=== PATIENT | female | born 1935 | race African-American/Black ===

== ENCOUNTER 2018-08-21 09:33 | Inpatient (IN) | payer MEDICAID, MEDICARE, OTHER ==
[2018-08-21 10:16] LABS: Mean Corpuscular HGB CONC 32.9 g/dL (32.0-36.0); Mean Corpuscular Hemoglobin 26.8 pg (27.0-31.0); Mean Corpuscular Volume 81.6 fL (78.0-98.0); Mean Platelet Volume 8.3 fL (7.4-10.4); Platelet Count 200 thou/uL (130-400); RBC Distribution Width 15.3 % (11.5-14.5); Red Blood Cell (RBC) Count 4.12 mill/uL (4.20-5.40); White Blood Cell (WBC) Count 24.8 thou/uL (4.8-10.8)
[2018-08-21 10:17] LABS: ALT (SGPT) 26 U/L (8-55); AST (SGOT) 30 U/L (5-34); Albumin 3.8 g/dL (3.4-4.8); Alkaline Phosphatase 61 U/L (40-150); Anion Gap 17 mmol/L (10-20); BUN (Urea Nitrogen) 24 mg/dL (9.8-20.1); Bilirubin, Total 0.8 mg/dL (0.2-1.2); Calc. Creatinine Clearance 0 mL/min (70-130); Calcium 9.9 mg/dL (7.8-10.44); Carbon Dioxide 19 mmol/L (23-31); Chloride 109 mmol/L (98-107); Estimated GFR-MDRD 27; Globulin 4.1 g/dL (2.4-3.5); Glucose 219 mg/dL (83-110); Potassium 4.7 mmol/L (3.5-5.1); Protein, Total 7.9 g/dL (6.0-8.3); Sodium 140 mmol/L (136-145)
[2018-08-21 10:22] LABS: Bilirubin Negative (Negative); Blood, Urine Trace (Negative); Clarity Clear (Clear); Glucose, Urine (Dipstick) Negative (Negative); Leukocyte Negative (Negative); Nitrite Negative (Negative); Protein, Urine (Dipstick) 30 mg/dL (Neg-Trace); Urobilinogen 0.2 mg/dL (Less than 2)
--- NOTE | 2018-08-21 10:30 | RAD ---
XR Chest Pa Lat STANDARD HISTORY: Fever COMPARISON: None FINDINGS: The heart size is normal. The lungs are well expanded without focal areas of consolidation, pneumothorax or pleural effusions. There are degenerative changes in the spine. IMPRESSION: No radiographic evidence of acute cardiopulmonary process.
[2018-08-21 10:31] LABS: RBC/HPF 0-3 HPF (0-3); Squamous Epithelial None Seen HPF (0-3); WBC/HPF None Seen HPF (0-3)
[2018-08-21 10:32] LABS: Bacteria/HPF None Seen HPF (None Seen); Epithelial Cast None Seen LPF (None Seen); White Blood Cell Cast None Seen LPF (None Seen)
[2018-08-21 10:39] LABS: Band 4 % (5-11); Hypochromia SLIGHT = 6-15 cells (100X) (0-5/hpf); Lymphocytes 8 % (21-51); MDiff Complete? YES; Monocytes 6 % (0-10); Neutrophil 82 % (42-75); Platelet Morphology Comment Appears Adequate
[2018-08-21] MEDS ORDERED: Sodium Chloride 0.9% 100 ML ONE (10:48)
[2018-08-21] MEDS ORDERED: Acetaminophen 500 MG TAB ONE (10:48)
[2018-08-21] MEDS ORDERED: Piperacillin/Tazobactam 4.5 GM VIAL ONE (10:48)
[2018-08-21] MEDS ORDERED: Heparin 1,000 UNITS/ML VIAL ONE (11:11)
[2018-08-21 13:36] LABS: Lactic Acid 1.7 mmol/L (0.5-2.2)
[2018-08-21] MEDS ORDERED: Dextrose 5% in Water 1,000 ML IV PRN (15:59)
[2018-08-21] MEDS ORDERED: Dextrose 50% Abboject 50 ML SYRINGE SLOW IVP PRN (15:59)
[2018-08-21] MEDS ORDERED: traMADol HCl 50 MG TAB PO PRN (16:15)
[2018-08-21] MEDS ORDERED: Acetaminophen 325 MG TAB PO PRN (16:18)
[2018-08-21] MEDS ORDERED: hydrALAZINE 20 MG/ML VIAL SLOW IVP PRN (16:27)
[2018-08-21] MEDS ORDERED: Benzonatate 100 MG CAP PO PRN (16:27)
[2018-08-21] MEDS ORDERED: Ondansetron ODT 4 MG TAB PO PRN (16:27)
[2018-08-21] MEDS ORDERED: Bisacodyl 5 MG TAB PO PRN ×2 (16:27)
[2018-08-21] MEDS ORDERED: cloNIDine 0.1 MG TAB PO PRN (16:27)
[2018-08-21] MEDS ORDERED: Senokot S 8.6-50 MG TAB PO PRN ×2 (16:27)
[2018-08-21] MEDS ORDERED: Diabetic Tussin 200 MG/10 ML UDCUP PO PRN (16:27)
--- NOTE | 2018-08-21 16:52 | RAD ---
3 VIEWS RIGHT KNEE: Date: 08/21/18 HISTORY: Pain. Sepsis. Evaluate for infected joint. COMPARISON: None. FINDINGS: No significant joint effusion. There is a right knee arthroplasty without evidence of perihardware deanne cency to suggest loosening or complication. No evidence of fracture. There is mild osteopenic change. IMPRESSION: No radiographic evidence of loosening or infection. No significant joint effusion. POS: [facility]
--- NOTE | 2018-08-21 17:29 | HP ---
PRIMARY CARE PHYSICIAN: Out of town. CHIEF COMPLAINT: High fever and right knee pain. HISTORY OF PRESENTING ILLNESS: Ms. Last is a very pleasant 82-year-old female with past medical history of diabetes mellitus, hypertension, and dyslipidemia, who is traveling here from [place] [employer], who then presented to [facility] for the above-mentioned complaint. History is mainly obtained by the patient herself. Electronic medical records have been reviewed and case has been discussed with admitting ER physician, Dr. Tavera. Ms. Last reports that she has been here with her granddaughter for the last few days and has been doing fine up until yesterday. Yesterday, all of a sudden, she started to have high fever as high as 104.9. She has had no prodrome of symptoms and no sick contacts. She denies any cough, shortness of breath, chest pain, and abdominal symptoms like abdominal pain or diarrhea. She had no difficulty with urination or increased frequency. She did notice that her right knee has swollen up and she had pain in the right knee. She also was feeling extremely weak after the fever subsided and her knees were giving way. She did have a little bit of sore throat yesterday as well. She presented to the ER with these symptoms and a temperature over that was 100.1, blood pressure 138/79, heart rate 91. Her initial workup did not reveal any specific source of infection. Her group A Streptococcus screen was negative and chest x-ray and urinalysis did not reveal any source of infection either. She was found to have elevated lactic acid and leukocytosis with WBCs of 24.8, platelet count of 200. She has 82% neutrophils. Serum chemistry revealed BUN 24, creatinine 1.81 with baseline unknown. She is now being admitted to telemetry unit with sepsis of unknown source. PAST MEDICAL HISTORY: 1. Hypertension. 2. Diabetes mellitus. 3. Dyslipidemia. PAST SURGICAL HISTORY: 1. Bilateral knee replacement, she has hardware in there according to her. 2. Cholecystectomy. 3. Hysterectomy. PSYCHIATRIC HISTORY: No anxiety or depression. SOCIAL HISTORY: She has no history of drug, tobacco, or alcohol abuse. She lives in [place], [place] but is visiting her granddaughter here. FAMILY HISTORY: Mother had heart failure. One of her sisters had breast cancer and sister's daughter had colon cancer. Two of her brothers also had some sort of cancer, but she does not know which type. Multiple family members have diabetes mellitus. The patient has never had a mammogram done, but she has had a colonoscopy five years ago. ALLERGIES: NO KNOWN MEDICATION ALLERGIES. CURRENT MEDICATIONS: Listed in the ER records; 1. Zetia 10 mg daily. 2. Ponce every 6 hours p.r.n. 3. Losartan 50 mg daily. 4. Allopurinol 100 mg daily. 5. Amlodipine 10 mg daily. 6. D3 once daily. 7. Aspirin 81 mg daily. 8. 5 mg daily. 9. Myrbetriq 25 mg daily. 10. Glipizide 10 mg daily. 11. Reglan 5 mg in the morning. REVIEW OF SYSTEMS: A 14-point review of system is done, it is negative except for those mentioned in the history and physical. CODE STATUS: Full code discussed with the patient. LABORATORY DATA: Lab examination; CBC shows WBCs 24.8, hemoglobin 11, platelet count of 200, and neutrophils 82%. Lactic acid 3.2 with a repeat lactic acid of 1.7. Blood sugar 219, BUN 24, and creatinine 1.81. Urinalysis shows trace protein, otherwise no bacteria, leukocyte esterase, or nitrites. Chest x-ray by my review shows no evidence of pleural effusion, edema, or infiltrate or atelectasis. A 12-lead EKG by my review shows normal sinus rhythm at 85 beats per minute without any ectopic changes. There is no ST or T-wave changes. PHYSICAL EXAMINATION: VITAL SIGNS: Upon presentation; blood pressure 138/79, pulse of 91, respirations 16, saturating 99% on room air, and temperature 100.1. GENERAL: She is somewhat uncomfortable because she complains of pain in her right knee. Otherwise, awake, alert, and oriented x3. HEENT: Mucous membrane is slightly dry. No oropharyngeal exudate or erythema. Head is normocephalic and atraumatic. Pupils are equal and reactive to light and accommodation. Extraocular movement intact. NECK: Supple without any lymphadenopathy, JVD, or bruit. CHEST: Clear to auscultation without any wheezing, rales, or rhonchi. HEART: Rate and rhythm are regular without any murmurs, rubs, or gallops. ABDOMEN: Soft, nontender, and nondistended with positive bowel sounds. EXTREMITIES: Free of any cyanosis, clubbing, or edema. NEUROLOGICAL: Examination is nonfocal. MUSCULOSKELETAL: Examination reveals swelling and tenderness with some warmth to her right knee in comparison to her left knee. SKIN: Free of any rashes or bruises. Feels warm and dry to touch. IMPRESSION AND PLAN: 1. Sepsis. The source is unknown at this time, but her right knee is quite concerning with hardware in the joint and pain and swelling. We will start with knee x-rays and continue empiric broad-spectrum antibiotics and supportive care for sepsis including IV fluids for now. Blood culture, urine culture have been obtained. The patient has had some complaints of sore throat, but her group A Streptococcus screen was negative. We will obtain viral respiratory panel by that as well. 2. Acute renal insufficiency. Baseline is unknown. We will continue IV fluids and avoid nephrotoxic medications and recheck her kidney function in the morning. 3. History of hypertension. Reconcile home medications and start them. Add p.r.n. antihypertensives as well. 4. Dyslipidemia. We will restart her Zetia once the dose is confirmed. 5. Code status. Full code discussed with the patient in detail. Surrogate decision maker is her daughter, who is not present in the room at this time. DISPOSITION: The patient is being admitted to telemetry floor for sepsis without any known source. She is hemodynamically stable at this time. Estimated length of stay is at least 2 to 3 midnights. Further management will depend upon her clinical course. Job ID: [id number]
[2018-08-21] MEDS: Sodium Chloride 0.9% 1,000 ML IV SCH (17:42)
[2018-08-21] MEDS: Piperacillin/Tazobactam 3.375 GM in Sodium Chloride 0.9% 100 ML IVPB SCH ×2 (17:48→22:53)
[2018-08-21 18:00] VITALS: BMI 31.5
[2018-08-21] MEDS ORDERED: Piperacillin/Tazobactam 4.5 GM in Sodium Chloride 0.9% 100 ML IVPB SCH (19:00)
[2018-08-21] MEDS ORDERED: Vancomycin HCl 1 GM in Premix Bag 1 BAG IVPB SCH (21:00)
[2018-08-21] MEDS ORDERED: Famotidine 20 MG TAB PO SCH (21:00)
[2018-08-22] MEDS: Piperacillin/Tazobactam 3.375 GM in Sodium Chloride 0.9% 100 ML IVPB SCH ×3 (05:13→16:44)
[2018-08-22 07:28] LABS: #Lymphocytes 2.9 thou/uL (1.20-3.40); #Monocytes 2.6 thou/uL (0.11-0.59); #Neutrophils 18.8 thou/uL (1.40-6.50); %Basophils 0.1 % (0.0-1.0); %Eosinophils 0.1 % (0.0-10.0); %Monocytes 10.8 % (0.0-10.0); %Neutrophils 77.1 % (42.0-75.0); Hemoglobin 10.6 g/dL (12.0-16.0); Mean Corpuscular HGB CONC 31.5 g/dL (32.0-36.0); Mean Corpuscular Hemoglobin 26.5 pg (27.0-31.0); Mean Platelet Volume 9.8 fL (7.4-10.4); Platelet Count 161 thou/uL (130-400); RBC Distribution Width 14.5 % (11.5-14.5); Red Blood Cell (RBC) Count 4.02 mill/uL (4.20-5.40); White Blood Cell (WBC) Count 24.3 thou/uL (4.8-10.8)
[2018-08-22 07:51] LABS: Anion Gap 13 mmol/L (10-20); BUN (Urea Nitrogen) 18 mg/dL (9.8-20.1); Calc. Creatinine Clearance 32 mL/min (70-130); Calcium 9.2 mg/dL (7.8-10.44); Carbon Dioxide 19 mmol/L (23-31); Chloride 110 mmol/L (98-107); Estimated GFR-MDRD 43; Glucose 184 mg/dL (83-110); Potassium 4.5 mmol/L (3.5-5.1); Sodium 137 mmol/L (136-145)
[2018-08-22] MEDS: Amlodipine 10 MG TAB PO SCH (08:25)
[2018-08-22] MEDS: Allopurinol 100 MG TAB PO SCH (08:25)
[2018-08-22] MEDS: Alogliptin 6.25 MG TAB PO SCH (08:25)
[2018-08-22] MEDS: HumaLOG 300 UNITS/3 ML VIAL SC PRN ×3 (08:26→17:55)
[2018-08-22] MEDS ORDERED: Enoxaparin Sodium 40 MG/0.4 ML SYRINGE SC SCH (09:00)
[2018-08-22] MEDS ORDERED: Lidocaine 1% (PF) 30 ML VIAL ONE (10:49)
[2018-08-22] MEDS ORDERED: Vancomycin HCl 750 MG in Sodium Chloride 0.9% 250 ML 250 ML IVPB SCH (12:00)
--- NOTE | 2018-08-22 12:36 | RAD ---
EXAM: XR Knee Lt 4 View STANDARD DATE: 08/22/2018 12:05 PM INDICATION: Infected total knee arthroplasty COMPARISON: None. FINDING: There is joint capsular distention. There is heterotopic ossification seen within the regio n of the patellar tendon. Small fragment of suspected polymethylmethacrylate measuring 5 mm is seen within the lateral aspect of the knee joint. There is diffuse osteopenia. The prosthetic components p roject in the expected position. IMPRESSION:Joint capsular distention. Total knee arthroplasty projects in the expected position. Hete rotopic ossification is seen within the region of the patella. Small suspected piece of polymethylmethacrylate is seen within the lateral aspect of the knee joint.
--- NOTE | 2018-08-22 12:53 | PDOC.PN ---
- Subjective Encounter Start Date: 08/22/18 Encounter Start Time: 10:30 Subjective: c/o pain both knees, no cough/sore throat/diarrhea/abd or chest pain - Objective Resuscitation Status - Order Detail: 08/21/18 16:27 Resuscitation Status Routine Resuscitation Status: FULL: Full Resuscitation Discussed with: discussed w pt MART Reviewed: Yes Vital Signs & Weight: Vital Signs (12 hours) Temp Pulse Resp BP Pulse Ox 08/22/18 11:38 99.8 F H 85 19 126/60 96 08/22/18 08:25 82 08/22/18 07:24 99.6 F 82 16 134/60 97 08/22/18 03:45 99.3 F 82 20 132/62 94 L Weight Weight 145 lb 12.8 oz Result Diagrams: 08/22/18 06:46 08/22/18 06:46 Additional Labs: Accuchecks 08/22/18 08/22/18 08/21/18 11:09 05:24 20:21 POC Glucose 174 H 191 H 201 H 08/21/18 17:58 POC Glucose 218 H Phys Exam - Physical Examination HEENT: PERRLA, moist MMs Neck: no JVD, supple Respiratory: no wheezing, no rales Cardiovascular: RRR, no significant murmur Gastrointestinal: soft, non-tender, positive bowel sounds Musculoskeletal: pulses present b/l knee have mild effusion, warm to touch, tenderness along joint lines Neurological: non-focal, moves all 4 limbs Psychiatric: normal affect, A&O x 3 Dx/Plan (1) Sepsis Code(s): A41.9 - SEPSIS, UNSPECIFIED ORGANISM Status: Acute Qualifiers: Sepsis type: Streptococcus group B Qualified Code(s): A40.1 - Sepsis due to streptococcus, group B (2) Bacteremia Code(s): R78.81 - BACTEREMIA Status: Acute Comment: strep pneumo (3) Septic arthritis Status: Acute Qualifiers: Septic arthritis location: knee Comment: likely b/l (4) SABINO (acute kidney injury) Code(s): N17.9 - ACUTE KIDNEY FAILURE, UNSPECIFIED Status: Acute (5) Metabolic acidosis Code(s): E87.2 - ACIDOSIS Status: Acute (6) DM type 2 (diabetes mellitus, type 2) Status: Chronic Qualifiers: Diabetes mellitus keno terminal operator insulin use: without keno terminal operator use (7) HTN (hypertension) Code(s): I10 - ESSENTIAL (PRIMARY) HYPERTENSION Status: Chronic Qualifiers: Hypertension type: essential hypertension Qualified Code(s): I10 - Essential (primary) hypertension (8) Dyslipidemia Code(s): E78.5 - HYPERLIPIDEMIA, UNSPECIFIED Status: Chronic (9) Chronic anemia Code(s): D64.9 - ANEMIA, UNSPECIFIED Status: Chronic - Plan d/w , will go for wash out in am, had purulent material asp in kn -: continue vanc, zosyn, await full sensitivities, has 2/2 strep pnemo in bloo -: continue alogliptin, norvasc, myrbetriq -: gentle iv hydration, echo is pending * . Review of Systems - Medications/Allergies Allergies/Adverse Reactions: Allergies Allergy/AdvReac Type Severity Reaction Status Date / Time No Known Allergies Allergy Unverified 08/21/18 16:13 Medications: Current Medications Allopurinol (Zyloprim) 100 mg PO DAILY [facility] Last Admin: 08/22/18 08:25 Dose: 100 mg Alogliptin Benzoate (Alogliptin) 5 mg PO DAILY [facility] Last Admin: 08/22/18 08:25 Dose: 5 mg Amlodipine Besylate (Norvasc) 10 mg PO DAILY [facility] Last Admin: 08/22/18 08:25 Dose: 10 mg Benzonatate (Tessalon) 100 mg PO Q6H PRN PRN Reason: Cough Bisacodyl (Dulcolax) 10 mg PO DAILYPRN PRN PRN Reason: Constipation Clonidine (Catapres) 0.1 mg PO Q4H PRN PRN Reason: SBP > 160____ Dextrose/Water (Dextrose 50%) 25 gm SLOW IVP PRN PRN PRN Reason: Hypoglycemia Enoxaparin Sodium (Lovenox) 40 mg SC 0900 [facility] Last Admin: 08/22/18 08:26 Dose: 40 mg Famotidine (Pepcid) 20 mg PO QPM [facility] Glucagon (Glucagon) 1 mg IM PRN PRN PRN Reason: Hypoglycemia Guaifenesin (Robitussin Sf) 200 mg PO Q4H PRN PRN Reason: Cough Hydralazine HCl (Apresoline) 10 mg SLOW IVP Q4H PRN PRN Reason: SBP > 180 and HR < 70 Dextrose/Water (D5w) 1,000 mls @ 0 mls/hr IV .Q0M PRN PRN Reason: Hypoglycemia Sodium Chloride (Normal Saline 0.9%) 1,000 mls @ 75 mls/hr IV INF [facility] Last Admin: 08/21/18 17:42 Dose: 1,000 mls Piperacillin Sod/Tazobactam (Sod 3.375 gm/ Sodium Chloride) 100 mls @ 200 mls/ hr IVPB Q6H [facility] Last Admin: 08/22/18 11:34 Dose: 100 mls Vancomycin HCl 750 mg/ Sodium (Chloride) 250 mls @ 250 mls/hr IVPB 1200 LY Insulin Human Lispro (Humalog) 0 units SC .MODERATE SLIDING SC PRN PRN Reason: Moderate Correctional Scale Last Admin: 08/22/18 08:26 Dose: 2 units Mirabegron (Myrbetriq Er) 25 mg PO DAILY [facility] Last Admin: 08/22/18 09:09 Dose: 25 mg Miscellaneous Medication (Pharmacy To Dose) 1 each IVPB PRN PRN PRN Reason: Pharmacy to dose Ondansetron HCl (Zofran Odt) 4 mg PO Q6H PRN PRN Reason: Nausea/Vomiting Senna/Docusate Sodium (Senokot S) 2 tab PO BIDPRN PRN PRN Reason: Constipation Sodium Chloride (Flush - Normal Saline) 10 ml IVF PRN PRN PRN Reason: Saline Flush Tramadol HCl (Ultram) 50 mg PO Q6H PRN PRN Reason: Pain Last Admin: 08/21/18 21:07 Dose: 50 mg
[2018-08-22 13:25] LABS: Body Fluid Source Synovial Fluid; Clarity Cloudy/Turbid (Clear)
[2018-08-22 13:26] LABS: BF Color Yellow; RBC Count-Automated 376000 /cumm; Tube # EDTA; WBC/NonHematic-Auto 264800 /cumm
[2018-08-22 13:29] LABS: BF Segmented Neutrophils 87 %; Cell Count Non Hematic 11 %; Lymphocytes 2 %
[2018-08-22] MEDS: cefTRIAXone\\ROCEPHIN 2 GM in Sodium Chloride 0.9% 100 ML IVPB SCH (17:56)
[2018-08-22] MEDS: Acetaminophen 325 MG TAB PO PRN ×2 (17:56→23:52)
[2018-08-22] MEDS: Famotidine 20 MG TAB PO SCH (20:27)
--- NOTE | 2018-08-23 00:27 | CON ---
DATE OF CONSULTATION: 08/22/2018 REASON FOR CONSULTATION: Bacteremia and bilateral knee replacement infection. HISTORY OF PRESENT ILLNESS: An 82-year-old with history of type 2 diabetes and hypertension, who had bilateral TKRs elsewhere and was in her usual state of health until 2 days before admission, when she developed fever of 104, general malaise, and worsening pain, initially on the right knee and then the left side with swelling. She was visiting her family members from [place] here in town. Before the trip, she was feeling just fine. BP was 130/70, heart rate 91 and she denied any headaches. No visual symptoms, cough, or sputum production. No sore throat. No back pain more than usual. No abdominal pain. No diarrhea. No genitourinary symptoms. No other joint symptoms. PAST MEDICAL HISTORY: Hypertension, type 2 diabetes, and dyslipidemia. PAST SURGICAL HISTORY: Bilateral knee replacements, cholecystectomy, and hysterectomy. SOCIAL HISTORY: Lives in [place] with family. Never smoker. No alcoholic beverage use. No drug use. FAMILY HISTORY: Coronary artery disease and colon cancer. ALLERGIES: NONE. CURRENT MEDICATIONS: 1. Tylenol. 2. Zyloprim. 3. Alogliptin. 4. Norvasc. 5. Tessalon. 6. Dulcolax. 7. Catapres. 8. . 9. Lovenox. 10. Pepcid. 11. Glucagon. 12. Insulin. 13. Myrbetriq. 14. Zosyn. 15. Vancomycin. PHYSICAL EXAMINATION: VITAL SIGNS: T-max 101.4, blood pressure 130/60, pulse 92, respirations 18, and O2 saturation 96%. SKIN: Shows peripheral IV access. She is voiding spontaneously in the diaper. GENERAL: No distress, pleasant. LYMPH: No lymphadenopathy. HEENT: Ocular movements conjugate. Sclerae white. Pupils are equal. Oral cavity, no lime teeth remaining in place. NECK: Supple. No jugular venous distention. LUNGS: Symmetric. Clear breath sounds. HEART: S1, S2. Regular rate without murmurs. ABDOMEN: Soft, not distended or tender. No ascites. No organomegaly. : No bladder distention. EXTREMITIES: Marked swelling in left knee and right knee. Marked limitation in range of motion due to severe pain, cannot even remove her socks without eliciting tremendous amount of pain. Pulses are 1+ in dorsalis pedis. No edema. Upper extremities, she is able to move well. NEURO: Cognitive function appears to be intact. LABORATORY DATA: White cell count is 24.8 and 24.3, hemoglobin 10.6, and platelets 161. Sodium 137. Creatinine 1.41 and on admission 1.81. Liver profile was within normal limits. Albumin 3.8. Urinalysis was essentially normal except for 30 protein. Synovial fluid with 264,000 wbc's with predominance of neutrophils. Two sets of blood cultures with Streptococcus pneumoniae. ASSESSMENT: Type 2 diabetes, hypertension, bilateral total knee replacements with hematogenous infection of the total knee replacements by Strep pneumoniae. The origin of this probably is respiratory tract, although the patient did not have any obvious symptoms of upper respiratory or lower respiratory tract infection. We will switch her to Rocephin 2 g daily. Discontinue remainder of antimicrobials. We will need PICC line and protracted IV antimicrobial therapy and orthopedic surgery washout, maybe removal of the implants with a functional spacer in their place. The disposition will probably involve transfer to [place] to rehab or similar setting or here in town and then completion of the treatment in the outpatient setting. Following initial IV therapy course, then around 3 to 6 months of oral Keflex, and may need chronic suppressive therapy depending on the surgical management. Job ID: [id number]
--- NOTE | 2018-08-23 00:53 | CON ---
DATE OF CONSULTATION: 08/22/2018 HISTORY OF PRESENT ILLNESS: Ms. Last is an 82-year-old female, who had previous total knee replacements performed, one in 2001 and the other one in 2003. She did very well with the left total knee and had no pain whatsoever from it. She states that she had a little bit discomfort in the right knee, but was very functional with it. Two days ago, she without a history of trauma or increased activity, began having high fever that was recorded here yesterday of fever up to 104.9, and she developed severe pain in both knees, right worse than left. She did have some swelling in the left knee, but no significant swelling in the right knee. No open wounds. X-rays of her knee show total knee replacements in good position and good alignment. No signs of loosening and I was able to review them and they do actually look very good. There was concern for possible septic arthritis. I was consulted for evaluation and aspiration. PAST MEDICAL HISTORY: Diabetes mellitus, hypertension, and dyslipidemia. PAST SURGICAL HISTORY: Above-mentioned left and right total knee replacements, cholecystectomy, and hysterectomy. PHYSICAL EXAMINATION: VITAL SIGNS: The patient has had temperature recorded up to 104.9. Her latest vital signs; temperature 99.3, pulse 82, respiratory rate 20, and blood pressure 132/62. EXTREMITIES: Examination of the knees shows well-healed scars over the anterior aspect of both knees. The right knee has no significant swelling. It is held in approximately 25 degrees of flexion. Any attempts of movement, either flexion or extension, causes severe pain. The skin itself looks very good. There are no open wounds and no noticeable erythema. The left knee does have some swelling but is also very painful to any type of movement and it is held at approximately 25 degrees of flexion. Both lower extremities are neurovascularly intact. LABORATORY DATA: Her white count this morning was 24.3, hemoglobin 10.6, and hematocrit 33.7. Chemistries show creatinine 1.41 and BUN is normal at 18. Her UA was normal. IMPRESSION: The patient is status post left and right total knee replacements with septic arthritis in both knees, hematogenous in origin, but the primary infection site at this point is unknown. PLAN: The patient will require irrigation and debridement of both knees. As she has already eaten, we will need to prepare her for the surgery and proceed with the surgery tomorrow. It appears that she has had a Oneal and Nephew total knee replacements and we will try to get polyethylene tibial liner to see if we can exchange those. Regardless of whether we get that or not, we will need to open them up and wash her out. The patient and her granddaughter are in agreement. Job ID: [id number]
[2018-08-23] MEDS: Sodium Chloride 0.9% 1,000 ML IV SCH ×2 (03:27→23:26)
[2018-08-23] MEDS ORDERED: Neomycin-Polymyxin 1 ML AMP ONE ×2 (07:58→08:00)
[2018-08-23] MEDS ORDERED: Fentanyl 100 MCG/2 ML VIAL ONE (08:37)
[2018-08-23] MEDS ORDERED: Bupivacaine HCl 0.5%/Epinephrine 1:200,000/PF 30 ml Vial ONE (10:07)
[2018-08-23] MEDS ORDERED: Promethazine HCl 25 MG/ML VIAL SLOW IVP PRN (11:07)
[2018-08-23] MEDS ORDERED: PACU-Morphine 4MG/ML VIAL SLOW IVP PRN (11:07)
[2018-08-23] MEDS ORDERED: Promethazine HCl 25 MG/ML VIAL IM PRN (11:07)
[2018-08-23] MEDS ORDERED: HYDROcodone/Acetaminophen 5/325 mg Tablet PO PRN (11:20)
[2018-08-23] MEDS ORDERED: Fentanyl 100 MCG/2 ML VIAL SLOW IVP PRN (11:20)
[2018-08-23] MEDS ORDERED: cefTRIAXone\\ROCEPHIN 2 GM in Sodium Chloride 0.9% 100 ML IVPB SCH (12:00)
--- NOTE | 2018-08-23 12:19 | OP ---
DATE OF PROCEDURE: 08/23/2018 PREOPERATIVE DIAGNOSIS: Bilateral infected total knee replacements. POSTOPERATIVE DIAGNOSIS: Bilateral infected total knee replacements. PROCEDURES PERFORMED: 1. Irrigation and debridement of right knee with tibial polyethylene exchange. 2. Irrigation and debridement of the left knee joint. ANESTHESIA: General. SPECIMENS: Cultures were obtained from each knee during surgery, sent for culture and sensitivity. TECHNIQUE: The patient was taken to the operating room, placed in supine position. Satisfactory general anesthesia was performed. Both lower extremities were sterilely prepped and draped in the usual fashion. The right lower extremity was addressed initially. It was exsanguinated and tourniquet at the right proximal thigh was raised to 250 mmHg. A longitudinal incision was made over the anterior aspect of the knee through the previous scar. The patient had a total knee replacement in 2001 and the other one was in 2003. The right knee had a Oneal and Nephew total knee replacement performed and I was able to secure a polyethylene tibial liner. A medial parapatellar arthrotomy was performed and the patient had purulent drainage in the knee joint and this was what was sent for culture and sensitivity. There was scar tissue and synovial tissue that was debrided, removed in the medial and lateral gutters of suprapatellar pouch, around the patella, and around the intercondylar region. The prosthesis was intact and was stable. The polyethylene liner was removed and the posterior aspect of the knee joint was irrigated with high-speed travel freight and passenger agent using antibiotic solution as well as the rest of the knee. A 9 mm Legion Oneal and Nephew articular insert was locked back in place onto the tibial component and the joint again was copiously irrigated with the antibiotic solution with the high-speed travel freight and passenger agent. A large Hemovac drain was placed out the suprapatellar pouch laterally and the knee was closed using #2 Vicryl for the retinacular tissue, 0 Vicryl for the fat and subcutaneous tissue, and skin was closed with skin trena. This was temporarily dressed, and the tourniquet was released. Attention was then turned to the left lower extremity, which was exsanguinated and tourniquet at the proximal left thigh was raised to 250 mmHg. A longitudinal incision was made in the anterior aspect of the left knee through the previous scar. Medial parapatellar arthrotomy was performed and again encountered purulent fluid in the knee joint. This was also sent for culture and sensitivity. The synovial and scar tissue was excised. This particular prosthesis was a Yelena prosthesis and could not procure a polyethylene liner and therefore had to be left in place. The knee joint was copiously irrigated with antibiotic solution using the high-speed travel freight and passenger agent. After all of the scar and synovial tissue was removed, a large Hemovac drain was placed in the suprapatellar pouch laterally and this knee was also closed using #2 Vicryl for the retinacular tissue, 0 Vicryl for the fat and subcutaneous tissue, and skin was closed with skin trena. 0.5% Marcaine with epinephrine was injected around the incisions on each knee for a total of 20 mL. The Hemovacs were connected and a sterile dressing was applied. Tourniquet was released off the left lower extremity. The patient was then awakened, extubated, and transferred to the recovery room in stable condition. ESTIMATED BLOOD LOSS: Minimal. COMPLICATIONS: None. TOURNIQUET TIME: On the right was 42 minutes and on the left was 47 minutes. Job ID: [id number]
[2018-08-23] MEDS: Amlodipine 10 MG TAB PO SCH (12:26)
[2018-08-23] MEDS: Alogliptin 6.25 MG TAB PO SCH (12:26)
[2018-08-23] MEDS: Allopurinol 100 MG TAB PO SCH (12:26)
[2018-08-23] MEDS: Enoxaparin Sodium 30 MG/0.3 ML SYRINGE SC SCH (12:26)
[2018-08-23] MEDS ORDERED: Lidocaine 1% PF 5 ML VIAL ONE (15:05)
[2018-08-23] MEDS ORDERED: PROPOFOL 200 MG/20 ML VIAL ONE (15:05)
[2018-08-23] MEDS ORDERED: Glycopyrrolate 0.2 MG/ML 5 ML SYRINGE ONE (15:05)
[2018-08-23] MEDS ORDERED: Ondansetron PF 4 MG/2 ML Vial ONE (15:05)
[2018-08-23] MEDS ORDERED: Rocuronium Bromide 10 MG/ML (10ML VIAL) ONE (15:05)
[2018-08-23] MEDS ORDERED: Metoclopramide HCl 10 MG/2 ML VIAL ONE (15:05)
[2018-08-23] MEDS ORDERED: diphenhydrAMINE 50 MG/ML VIAL ONE (15:05)
[2018-08-23] MEDS: cefTRIAXone\\ROCEPHIN 2 GM in Sodium Chloride 0.9% 100 ML IVPB SCH (16:29)
[2018-08-23] MEDS: traMADol HCl 50 MG TAB PO PRN ×2 (16:29→21:29)
[2018-08-23] MEDS: Famotidine 20 MG TAB PO SCH (21:29)
[2018-08-24] MEDS: traMADol HCl 50 MG TAB PO PRN ×2 (04:16→15:09)
[2018-08-24 05:14] LABS: Hemoglobin 9.8 g/dL (12.0-16.0); Mean Corpuscular HGB CONC 32.1 g/dL (32.0-36.0); Mean Corpuscular Hemoglobin 26.3 pg (27.0-31.0); Mean Corpuscular Volume 81.9 fL (78.0-98.0); Mean Platelet Volume 9.9 fL (7.4-10.4); Platelet Count 201 thou/uL (130-400); RBC Distribution Width 14.2 % (11.5-14.5); Red Blood Cell (RBC) Count 3.72 mill/uL (4.20-5.40)
[2018-08-24] MEDS: HumaLOG 300 UNITS/3 ML VIAL SC PRN ×2 (06:14→16:43)
[2018-08-24] MEDS: Alogliptin 6.25 MG TAB PO SCH (08:02)
[2018-08-24] MEDS: Enoxaparin Sodium 30 MG/0.3 ML SYRINGE SC SCH (08:03)
[2018-08-24] MEDS: Amlodipine 10 MG TAB PO SCH (08:03)
[2018-08-24] MEDS: Losartan 25 MG TAB PO SCH (08:03)
[2018-08-24] MEDS: Allopurinol 100 MG TAB PO SCH (08:03)
[2018-08-24] MEDS ORDERED: Amlodipine 10 MG TAB PO SCH (09:00)
--- NOTE | 2018-08-24 13:04 | PDOC.PN ---
- Subjective Encounter Start Date: 08/23/18 Encounter Start Time: 17:00 Subjective: is post op debridement -: awake, not in distress - Objective Resuscitation Status - Order Detail: 08/21/18 16:27 Resuscitation Status Routine Resuscitation Status: FULL: Full Resuscitation Discussed with: discussed w pt MART Reviewed: Yes Vital Signs & Weight: Vital Signs (12 hours) Temp Pulse Resp BP BP Pulse Ox 08/24/18 11:11 98.1 F 88 20 129/79 99 08/24/18 08:03 84 132/82 95 08/24/18 07:57 98.3 F 84 14 132/82 95 08/24/18 04:00 100 F H 95 16 124/74 93 L Weight Weight 145 lb 12.8 oz I&O: 08/23/18 08/24/18 08/25/18 06:59 06:59 06:59 Intake Total 1110 2085 Output Total 750 1510 Balance 360 575 Result Diagrams: 08/24/18 04:52 08/22/18 06:46 Additional Labs: Accuchecks 08/24/18 08/24/18 08/23/18 11:48 05:45 22:58 POC Glucose 157 H 184 H 198 H 08/23/18 16:18 POC Glucose 184 H Phys Exam - Physical Examination HEENT: PERRLA, sclera anicteric Neck: no JVD, supple Respiratory: no wheezing, no rales Cardiovascular: RRR, no significant murmur Gastrointestinal: soft, non-tender, positive bowel sounds Musculoskeletal: pulses present b/l knee has drains+ Neurological: non-focal, moves all 4 limbs Dx/Plan (1) Sepsis Code(s): A41.9 - SEPSIS, UNSPECIFIED ORGANISM Status: Acute Qualifiers: Sepsis type: Streptococcus group B Qualified Code(s): A40.1 - Sepsis due to streptococcus, group B (2) Bacteremia Code(s): R78.81 - BACTEREMIA Status: Acute Comment: strep pneumo (3) Septic arthritis Status: Acute Qualifiers: Septic arthritis location: knee Comment: likely b/l (4) SABINO (acute kidney injury) Code(s): N17.9 - ACUTE KIDNEY FAILURE, UNSPECIFIED Status: Acute (5) Metabolic acidosis Code(s): E87.2 - ACIDOSIS Status: Acute (6) DM type 2 (diabetes mellitus, type 2) Status: Chronic Qualifiers: Diabetes mellitus custodial insulin use: without custodial use (7) HTN (hypertension) Code(s): I10 - ESSENTIAL (PRIMARY) HYPERTENSION Status: Chronic Qualifiers: Hypertension type: essential hypertension Qualified Code(s): I10 - Essential (primary) hypertension (8) Dyslipidemia Code(s): E78.5 - HYPERLIPIDEMIA, UNSPECIFIED Status: Chronic (9) Chronic anemia Code(s): D64.9 - ANEMIA, UNSPECIFIED Status: Chronic - Plan hemostable -: is on ceftriaxone -: await full cultures -: continue norvasc, myrbetriq, norvasc and gentle hydration -: will f/u * . Review of Systems - Medications/Allergies Allergies/Adverse Reactions: Allergies Allergy/AdvReac Type Severity Reaction Status Date / Time No Known Allergies Allergy Unverified 08/21/18 16:13 Medications: Current Medications Acetaminophen (Tylenol) 650 mg PO Q4H PRN PRN Reason: Headache/Fever or Pain (1-3) Last Admin: 08/22/18 23:52 Dose: 650 mg Hydrocodone Bitart/Acetaminophen ([place] 5/325) 1 tab PO Q6HR PRN PRN Reason: Moderate to Severe Pain (6-10) Allopurinol (Zyloprim) 100 mg PO DAILY [facility] Last Admin: 08/24/18 08:03 Dose: 100 mg Alogliptin Benzoate (Alogliptin) 5 mg PO DAILY [facility] Last Admin: 08/24/18 08:02 Dose: 5 mg Amlodipine Besylate (Norvasc) 10 mg PO DAILY [facility] Last Admin: 08/24/18 08:03 Dose: 10 mg Benzonatate (Tessalon) 100 mg PO Q6H PRN PRN Reason: Cough Bisacodyl (Dulcolax) 10 mg PO DAILYPRN PRN PRN Reason: Constipation Clonidine (Catapres) 0.1 mg PO Q4H PRN PRN Reason: SBP > 160____ Dextrose/Water (Dextrose 50%) 25 gm SLOW IVP PRN PRN PRN Reason: Hypoglycemia Enoxaparin Sodium (Lovenox) 30 mg SC 0900 [facility] Last Admin: 08/24/18 08:03 Dose: 30 mg Famotidine (Pepcid) 20 mg PO QPM [facility] Last Admin: 08/23/18 21:29 Dose: 20 mg Fentanyl (Sublimaze) 50 mcg SLOW IVP Q30MIN PRN PRN Reason: Severe Pain (7-10) Glucagon (Glucagon) 1 mg IM PRN PRN PRN Reason: Hypoglycemia Guaifenesin (Robitussin Sf) 200 mg PO Q4H PRN PRN Reason: Cough Hydralazine HCl (Apresoline) 10 mg SLOW IVP Q4H PRN PRN Reason: SBP > 180 and HR < 70 Dextrose/Water (D5w) 1,000 mls @ 0 mls/hr IV .Q0M PRN PRN Reason: Hypoglycemia Sodium Chloride (Normal Saline 0.9%) 1,000 mls @ 75 mls/hr IV INF [facility] Last Admin: 08/23/18 23:26 Dose: 1,000 mls Ceftriaxone Sodium 2 gm/ (Sodium Chloride) 100 mls @ 200 mls/hr IVPB Q24HR [facility] Last Admin: 08/23/18 16:29 Dose: 100 mls Insulin Human Lispro (Humalog) 0 units SC .MODERATE SLIDING SC PRN PRN Reason: Moderate Correctional Scale Last Admin: 08/24/18 06:14 Dose: 2 units Losartan Potassium (Cozaar) 50 mg PO DAILY [facility] Last Admin: 08/24/18 08:03 Dose: 50 mg Mirabegron (Myrbetriq Er) 25 mg PO DAILY [facility] Last Admin: 08/24/18 08:03 Dose: 25 mg Ondansetron HCl (Zofran Odt) 4 mg PO Q6H PRN PRN Reason: Nausea/Vomiting Senna/Docusate Sodium (Senokot S) 2 tab PO BIDPRN PRN PRN Reason: Constipation Sodium Chloride (Flush - Normal Saline) 10 ml IVF PRN PRN PRN Reason: Saline Flush Sodium Chloride (Flush - Normal Saline) 10 ml IVF PRN PRN PRN Reason: Saline Flush Tramadol HCl (Ultram) 100 mg PO Q6H PRN PRN Reason: Moderate Pain (4-6) Last Admin: 08/24/18 04:16 Dose: 100 mg
--- NOTE | 2018-08-24 13:06 | PDOC.PN ---
- Subjective Encounter Start Date: 08/24/18 Encounter Start Time: 08:45 Subjective: awake, no sob, didn't sleep well last night -: no pain -: daughter at bedside - Objective Resuscitation Status - Order Detail: 08/21/18 16:27 Resuscitation Status Routine Resuscitation Status: FULL: Full Resuscitation Discussed with: discussed w pt MART Reviewed: Yes Vital Signs & Weight: Vital Signs (12 hours) Temp Pulse Resp BP BP Pulse Ox 08/24/18 11:11 98.1 F 88 20 129/79 99 08/24/18 08:03 84 132/82 95 08/24/18 07:57 98.3 F 84 14 132/82 95 08/24/18 04:00 100 F H 95 16 124/74 93 L Weight Weight 145 lb 12.8 oz I&O: 08/23/18 08/24/18 08/25/18 06:59 06:59 06:59 Intake Total 1110 2085 Output Total 750 1510 Balance 360 575 Result Diagrams: 08/24/18 04:52 08/22/18 06:46 Additional Labs: Accuchecks 08/24/18 08/24/18 08/23/18 11:48 05:45 22:58 POC Glucose 157 H 184 H 198 H 08/23/18 16:18 POC Glucose 184 H Phys Exam - Physical Examination HEENT: PERRLA, moist MMs Neck: no JVD, supple Respiratory: no wheezing, no rales Cardiovascular: RRR, no significant murmur Gastrointestinal: soft, non-tender, positive bowel sounds Musculoskeletal: pulses present drains + b/l Neurological: non-focal, moves all 4 limbs responds well to verbal stimuli Dx/Plan (1) Sepsis Code(s): A41.9 - SEPSIS, UNSPECIFIED ORGANISM Status: Acute Qualifiers: Sepsis type: Streptococcus group B Qualified Code(s): A40.1 - Sepsis due to streptococcus, group B (2) Bacteremia Code(s): R78.81 - BACTEREMIA Status: Acute Comment: strep pneumo (3) Septic arthritis Status: Acute Qualifiers: Septic arthritis location: knee Comment: likely b/l (4) SABINO (acute kidney injury) Code(s): N17.9 - ACUTE KIDNEY FAILURE, UNSPECIFIED Status: Acute (5) Metabolic acidosis Code(s): E87.2 - ACIDOSIS Status: Acute (6) DM type 2 (diabetes mellitus, type 2) Status: Chronic Qualifiers: Diabetes mellitus mcfp insulin use: without mcfp use (7) HTN (hypertension) Code(s): I10 - ESSENTIAL (PRIMARY) HYPERTENSION Status: Chronic Qualifiers: Hypertension type: essential hypertension Qualified Code(s): I10 - Essential (primary) hypertension (8) Dyslipidemia Code(s): E78.5 - HYPERLIPIDEMIA, UNSPECIFIED Status: Chronic (9) Chronic anemia Code(s): D64.9 - ANEMIA, UNSPECIFIED Status: Chronic - Plan strep is sensitive to all antibiotics -: currently on ceftriaxone, await opinion for dc antibiotic -: will need rehab placement, I have d/w pt and daughter at bedside -: continue norvasc, myrbetriq, alogliptin -: fentanyl, norco prn for pain. PT to ambulate per ortho adv * . Review of Systems - Medications/Allergies Allergies/Adverse Reactions: Allergies Allergy/AdvReac Type Severity Reaction Status Date / Time No Known Allergies Allergy Unverified 08/21/18 16:13 Medications: Current Medications Acetaminophen (Tylenol) 650 mg PO Q4H PRN PRN Reason: Headache/Fever or Pain (1-3) Last Admin: 08/22/18 23:52 Dose: 650 mg Hydrocodone Bitart/Acetaminophen ([place] 5/325) 1 tab PO Q6HR PRN PRN Reason: Moderate to Severe Pain (6-10) Allopurinol (Zyloprim) 100 mg PO DAILY [facility] Last Admin: 08/24/18 08:03 Dose: 100 mg Alogliptin Benzoate (Alogliptin) 5 mg PO DAILY [facility] Last Admin: 08/24/18 08:02 Dose: 5 mg Amlodipine Besylate (Norvasc) 10 mg PO DAILY [facility] Last Admin: 08/24/18 08:03 Dose: 10 mg Benzonatate (Tessalon) 100 mg PO Q6H PRN PRN Reason: Cough Bisacodyl (Dulcolax) 10 mg PO DAILYPRN PRN PRN Reason: Constipation Clonidine (Catapres) 0.1 mg PO Q4H PRN PRN Reason: SBP > 160____ Dextrose/Water (Dextrose 50%) 25 gm SLOW IVP PRN PRN PRN Reason: Hypoglycemia Enoxaparin Sodium (Lovenox) 30 mg SC 0900 [facility] Last Admin: 08/24/18 08:03 Dose: 30 mg Famotidine (Pepcid) 20 mg PO QPM [facility] Last Admin: 08/23/18 21:29 Dose: 20 mg Fentanyl (Sublimaze) 50 mcg SLOW IVP Q30MIN PRN PRN Reason: Severe Pain (7-10) Glucagon (Glucagon) 1 mg IM PRN PRN PRN Reason: Hypoglycemia Guaifenesin (Robitussin Sf) 200 mg PO Q4H PRN PRN Reason: Cough Hydralazine HCl (Apresoline) 10 mg SLOW IVP Q4H PRN PRN Reason: SBP > 180 and HR < 70 Dextrose/Water (D5w) 1,000 mls @ 0 mls/hr IV .Q0M PRN PRN Reason: Hypoglycemia Sodium Chloride (Normal Saline 0.9%) 1,000 mls @ 75 mls/hr IV INF [facility]PL[facility] Last Admin: 08/23/18 23:26 Dose: 1,000 mls Ceftriaxone Sodium 2 gm/ (Sodium Chloride) 100 mls @ 200 mls/hr IVPB Q24HR [facility]PLAC[facility] Last Admin: 08/23/18 16:29 Dose: 100 mls Insulin Human Lispro (Humalog) 0 units SC .MODERATE SLIDING SC PRN PRN Reason: Moderate Correctional Scale Last Admin: 08/24/18 06:14 Dose: 2 units Losartan Potassium (Cozaar) 50 mg PO DAILY [facility] Last Admin: 08/24/18 08:03 Dose: 50 mg Mirabegron (Myrbetriq Er) 25 mg PO DAILY [facility] Last Admin: 08/24/18 08:03 Dose: 25 mg Ondansetron HCl (Zofran Odt) 4 mg PO Q6H PRN PRN Reason: Nausea/Vomiting Senna/Docusate Sodium (Senokot S) 2 tab PO BIDPRN PRN PRN Reason: Constipation Sodium Chloride (Flush - Normal Saline) 10 ml IVF PRN PRN PRN Reason: Saline Flush Sodium Chloride (Flush - Normal Saline) 10 ml IVF PRN PRN PRN Reason: Saline Flush Tramadol HCl (Ultram) 100 mg PO Q6H PRN PRN Reason: Moderate Pain (4-6) Last Admin: 08/24/18 04:16 Dose: 100 mg
[2018-08-24] MEDS: cefTRIAXone\\ROCEPHIN 2 GM in Sodium Chloride 0.9% 100 ML IVPB SCH (16:38)
--- NOTE | 2018-08-24 17:00 | PRG ---
DATE OF SERVICE: 08/24/2018 SUBJECTIVE: The patient had a washout right and left knee. I think on the left side, there was a polyethylene exchange. The right side was just washed. She is having as expected moderate pain in both knees, but no dyspnea or chest pain. She has a Rosario catheter. No diarrhea. OBJECTIVE: VITAL SIGNS: T-max of 100, blood pressure 120/63, pulse 96, respirations 18, and O2 saturations 95%. GENERAL: Appears distress, oriented, follows commands. HEENT: Ocular movements conjugate. LUNGS: Symmetric. Clear breath sounds. HEART: S1 and S2, regular rate. No S3 or S4. ABDOMEN: Soft, not distended or tender. EXTREMITIES: Knees with dressing, which was not removed. LABORATORY DATA: White cell count 19,000, hemoglobin 9.8, platelets 201. Creatinine from yesterday was 1.41, which is better than on admission. Microbiology; the same, repeat cultures during the procedure are still pending. 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 The organism is pansusceptible. The options for management include long-term quinolones or place a PICC line and treat with IV Rocephin. 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 We will go ahead and order for PICC line placement and get director of casework help for Rocephin administration. Job ID: [id number]
--- NOTE | 2018-08-24 18:23 | PRG ---
DATE OF SERVICE: 08/24/2018 Ms. Last was able to sit up in bed with physical therapy today. Her pain is well controlled. The patient has been afebrile, pulse 84, respiratory rate 14, blood pressure 132/82. Blood cultures that were obtained at admission showed Streptococcus pneumoniae. Cultures from the knee fluid, no growth so far. Both lower extremities are neurovascularly intact. The patient will continue with IV antibiotics per Dr. Martin. She will continue with physical therapy to work on getting out of bed and ambulating with a walker. Consult Case Management for post hospitalization placement. She has good candidate for rehab. Job ID: [id number]
[2018-08-24] MEDS: Famotidine 20 MG TAB PO SCH (19:50)
[2018-08-25 06:00] LABS: Hemoglobin 9.1 g/dL (12.0-16.0); Mean Corpuscular HGB CONC 32.3 g/dL (32.0-36.0); Mean Corpuscular Hemoglobin 26.4 pg (27.0-31.0); Mean Corpuscular Volume 81.7 fL (78.0-98.0); Mean Platelet Volume 9.5 fL (7.4-10.4); Platelet Count 206 thou/uL (130-400); RBC Distribution Width 14.1 % (11.5-14.5); Red Blood Cell (RBC) Count 3.44 mill/uL (4.20-5.40); White Blood Cell (WBC) Count 15.2 thou/uL (4.8-10.8)
[2018-08-25 06:24] LABS: Anion Gap 10 mmol/L (10-20); BUN (Urea Nitrogen) 15 mg/dL (9.8-20.1); Calc. Creatinine Clearance 46 mL/min (70-130); Calcium 8.9 mg/dL (7.8-10.44); Carbon Dioxide 19 mmol/L (23-31); Chloride 112 mmol/L (98-107); Estimated GFR-MDRD 66; Glucose 159 mg/dL (83-110); Potassium 3.5 mmol/L (3.5-5.1); Sodium 137 mmol/L (136-145)
[2018-08-25] MEDS: Alogliptin 6.25 MG TAB PO SCH (09:21)
[2018-08-25] MEDS: Losartan 25 MG TAB PO SCH (09:21)
[2018-08-25] MEDS: Allopurinol 100 MG TAB PO SCH (09:22)
[2018-08-25] MEDS: Amlodipine 10 MG TAB PO SCH (09:22)
--- NOTE | 2018-08-25 11:03 | SPC ---
Sonographic guided left upper extremity PICC placement HISTORY: Knee infection. Need for long-term antibiotics. FINDINGS: After explaining the procedure and answering all questions, the left upper extremity was pr epped and draped in usual sterile fashion. Sterile technique, buffered local anesthesia, sonographic guidance, and a 22-gauge needle were used to carefully access the left brachial vein. Sta ndard technique was then used to place the tip of a 5 [place] single lumen PICC so that the tip lies at the level of the right atrium. The catheter was flushed and secured externally. Patient tolerated the procedure well and was returned in unchanged condition. Fluoroscopy time 0.8 minutes. IMPRESSION: Left upper extremity PICC is ready for use.
--- NOTE | 2018-08-25 11:47 | PDOC.PN ---
- Subjective Encounter Start Date: 08/25/18 Encounter Start Time: 09:30 Subjective: awake, c/o abd colic in lower abd -: last bm yesterday, has bernard -: no nausea - Objective Resuscitation Status - Order Detail: 08/21/18 16:27 Resuscitation Status Routine Resuscitation Status: FULL: Full Resuscitation Discussed with: discussed w pt MAR Reviewed: Yes Vital Signs & Weight: Vital Signs (12 hours) Temp Pulse Resp BP BP Pulse Ox 08/25/18 09:22 93 135/71 08/25/18 09:20 96 08/25/18 07:38 99.3 F 93 16 135/71 96 08/25/18 04:17 99.5 F 92 16 130/74 95 Weight Weight 145 lb 12.8 oz I&O: 08/24/18 08/25/18 08/26/18 06:59 06:59 06:59 Intake Total 2085 2505 Output Total 1510 1095 Balance 575 1410 Result Diagrams: 08/25/18 05:36 08/25/18 05:36 Additional Labs: Accuchecks 08/25/18 08/24/18 08/24/18 05:33 20:46 16:41 POC Glucose 166 H 172 H 243 H 08/24/18 11:48 POC Glucose 157 H Phys Exam - Physical Examination HEENT: PERRLA, moist MMs Neck: no JVD, supple Respiratory: no wheezing, no rales Cardiovascular: RRR, no significant murmur Gastrointestinal: soft, no distention, positive bowel sounds Musculoskeletal: pulses present has drain in vac b/l knee Neurological: non-focal, moves all 4 limbs Psychiatric: normal affect, A&O x 3 Dx/Plan (1) Sepsis Code(s): A41.9 - SEPSIS, UNSPECIFIED ORGANISM Status: Acute Qualifiers: Sepsis type: Streptococcus group B Qualified Code(s): A40.1 - Sepsis due to streptococcus, group B (2) Bacteremia Code(s): R78.81 - BACTEREMIA Status: Acute Comment: strep pneumo (3) Septic arthritis Status: Acute Qualifiers: Septic arthritis location: knee Comment: likely b/l (4) SABINO (acute kidney injury) Code(s): N17.9 - ACUTE KIDNEY FAILURE, UNSPECIFIED Status: Resolved (5) Metabolic acidosis Code(s): E87.2 - ACIDOSIS Status: Acute Comment: resolving (6) DM type 2 (diabetes mellitus, type 2) Status: Chronic Qualifiers: Diabetes 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 -: wbc is down to 15k now * . To work with PT per ortho adv D/w daughter at bedside Review of Systems - Medications/Allergies Allergies/Adverse Reactions: Allergies Allergy/AdvReac Type Severity Reaction Status Date / Time No Known Allergies Allergy Unverified 08/21/18 16:13 Medications: Current Medications Acetaminophen (Tylenol) 650 mg PO Q4H PRN PRN Reason: Headache/Fever or Pain (1-3) Last Admin: 08/22/18 23:52 Dose: 650 mg Hydrocodone Bitart/Acetaminophen ([place] 5/325) 1 tab PO Q6HR PRN PRN Reason: Moderate to Severe Pain (6-10) Allopurinol (Zyloprim) 100 mg PO DAILY [facility] Last Admin: 08/25/18 09:22 Dose: 100 mg Alogliptin Benzoate (Alogliptin) 5 mg PO DAILY [facility] Last Admin: 08/25/18 09:21 Dose: 5 mg Amlodipine Besylate (Norvasc) 10 mg PO DAILY [facility] Last Admin: 08/25/18 09:22 Dose: 10 mg Benzonatate (Tessalon) 100 mg PO Q6H PRN PRN Reason: Cough Bisacodyl (Dulcolax) 10 mg PO DAILYPRN PRN PRN Reason: Constipation Clonidine (Catapres) 0.1 mg PO Q4H PRN PRN Reason: SBP > 160____ Dextrose/Water (Dextrose 50%) 25 gm SLOW IVP PRN PRN PRN Reason: Hypoglycemia Enoxaparin Sodium (Lovenox) 30 mg SC 0900 [facility] Last Admin: 08/24/18 08:03 Dose: 30 mg Famotidine (Pepcid) 20 mg PO QPM [facility] Last Admin: 08/24/18 19:50 Dose: 20 mg Fentanyl (Sublimaze) 50 mcg SLOW IVP Q30MIN PRN PRN Reason: Severe Pain (7-10) Glucagon (Glucagon) 1 mg IM PRN PRN PRN Reason: Hypoglycemia Guaifenesin (Robitussin Sf) 200 mg PO Q4H PRN PRN Reason: Cough Hydralazine HCl (Apresoline) 10 mg SLOW IVP Q4H PRN PRN Reason: SBP > 180 and HR < 70 Dextrose/Water (D5w) 1,000 mls @ 0 mls/hr IV .Q0M PRN PRN Reason: Hypoglycemia Sodium Chloride (Normal Saline 0.9%) 1,000 mls @ 75 mls/hr IV INF [facility] Last Admin: 08/23/18 23:26 Dose: 1,000 mls Ceftriaxone Sodium 2 gm/ (Sodium Chloride) 100 mls @ 200 mls/hr IVPB Q24HR [facility] Last Admin: 08/24/18 16:38 Dose: 100 mls Insulin Human Lispro (Humalog) 0 units SC .MODERATE SLIDING SC PRN PRN Reason: Moderate Correctional Scale Last Admin: 08/24/18 16:43 Dose: 4 units Losartan Potassium (Cozaar) 50 mg PO DAILY [facility] Last Admin: 08/25/18 09:21 Dose: 50 mg Mirabegron (Myrbetriq Er) 25 mg PO DAILY [facility] Last Admin: 08/25/18 09:22 Dose: 25 mg Ondansetron HCl (Zofran Odt) 4 mg PO Q6H PRN PRN Reason: Nausea/Vomiting Last Admin: 08/25/18 08:37 Dose: 4 mg Senna/Docusate Sodium (Senokot S) 2 tab PO BIDPRN PRN PRN Reason: Constipation Sodium Chloride (Flush - Normal Saline) 10 ml IVF PRN PRN PRN Reason: Saline Flush Sodium Chloride (Flush - Normal Saline) 10 ml IVF PRN PRN PRN Reason: Saline Flush Tramadol HCl (Ultram) 100 mg PO Q6H PRN PRN Reason: Moderate Pain (4-6) Last Admin: 08/24/18 15:09 Dose: 100 mg
[2018-08-25] MEDS: traMADol HCl 50 MG TAB PO PRN (15:32)
[2018-08-25] MEDS: Enoxaparin Sodium 30 MG/0.3 ML SYRINGE SC SCH (15:33)
[2018-08-25] MEDS: cefTRIAXone\\ROCEPHIN 2 GM in Sodium Chloride 0.9% 100 ML IVPB SCH (16:52)
[2018-08-25] MEDS: Sodium Chloride 0.9% 1,000 ML IV SCH (16:53)
--- NOTE | 2018-08-25 18:44 | PRG ---
DATE OF SERVICE: 08/25/2018 Ms. Last continues to have pain in both knees. She has some pain in the right foot also today that she did not have previously. Maximum temperature is 99.5. Her vital signs are stable. Cultures from both knees from surgery are no growth so far. She does have the blood cultures that have shown Streptococcus pneumoniae. White count is 15.2, hemoglobin 9.1, and hematocrit 28.1. The patient's drains in her knees are still in place. The right foot skin appears normal. There are no open wounds. No erythema and very little swelling. PLAN: The patient had a PICC line placed today. IV antibiotics will be given as per Dr. Martin. She will continue to work with physical therapy. She has made a little progress with them. She was able to stand at the bedside, but thus far has not been able to ambulate and they will continue to work with her to improve her strength and balance. Job ID: [id number]
[2018-08-25] MEDS: Famotidine 20 MG TAB PO SCH (20:43)
[2018-08-26] MEDS: Acetaminophen 325 MG TAB PO PRN (05:46)
[2018-08-26] MEDS: Sodium Chloride 0.9% 1,000 ML IV SCH ×2 (05:47→18:12)
[2018-08-26 06:47] LABS: Hemoglobin 8.5 g/dL (12.0-16.0); Mean Corpuscular HGB CONC 33.4 g/dL (32.0-36.0); Mean Corpuscular Hemoglobin 27.3 pg (27.0-31.0); Mean Corpuscular Volume 81.7 fL (78.0-98.0); Mean Platelet Volume 9.4 fL (7.4-10.4); Platelet Count 216 thou/uL (130-400); RBC Distribution Width 13.9 % (11.5-14.5); White Blood Cell (WBC) Count 15.9 thou/uL (4.8-10.8)
[2018-08-26] MEDS: HumaLOG 300 UNITS/3 ML VIAL SC PRN ×2 (06:50→18:07)
[2018-08-26] MEDS ORDERED: Alogliptin 25 MG TAB PO SCH (09:00)
[2018-08-26] MEDS: Enoxaparin Sodium 30 MG/0.3 ML SYRINGE SC SCH (10:32)
[2018-08-26] MEDS: Losartan 25 MG TAB PO SCH (10:32)
[2018-08-26] MEDS: Allopurinol 100 MG TAB PO SCH (10:33)
[2018-08-26] MEDS: Amlodipine 10 MG TAB PO SCH (10:33)
[2018-08-26] MEDS: Alogliptin 25 MG TAB PO SCH (10:42)
[2018-08-26] MEDS: traMADol HCl 50 MG TAB PO PRN (10:42)
--- NOTE | 2018-08-26 12:10 | PDOC.PN ---
- Subjective Encounter Start Date: 08/26/18 Encounter Start Time: 11:15 Subjective: feels good, not ambulated yet -: has stood at the edge of bed -: no pain - Objective Resuscitation Status - Order Detail: 08/21/18 16:27 Resuscitation Status Routine Resuscitation Status: FULL: Full Resuscitation Discussed with: discussed w pt MART Reviewed: Yes Vital Signs & Weight: Vital Signs (12 hours) Temp Pulse Resp BP BP Pulse Ox 08/26/18 10:57 98 F 82 16 121/67 98 08/26/18 10:33 82 121/67 08/26/18 07:37 98.7 F 77 16 100/60 98 08/26/18 04:21 99.5 F 76 16 117/66 96 Weight Weight 145 lb 12.8 oz I&O: 08/25/18 08/26/18 08/27/18 06:59 06:59 06:59 Intake Total 2505 2655 Output Total 1095 2490 Balance 1410 165 Result Diagrams: 08/26/18 05:50 08/25/18 05:36 Additional Labs: Accuchecks 08/26/18 08/26/18 08/25/18 10:51 06:25 20:48 POC Glucose 129 H 191 H 222 H 08/25/18 17:23 POC Glucose 173 H Phys Exam - Physical Examination HEENT: PERRLA, moist MMs Neck: no JVD, supple Respiratory: no wheezing, no rales Cardiovascular: RRR, no significant murmur Gastrointestinal: soft, non-tender, positive bowel sounds Musculoskeletal: pulses present Neurological: non-focal, moves all 4 limbs Psychiatric: normal affect, A&O x 3 Dx/Plan (1) Sepsis Code(s): A41.9 - SEPSIS, UNSPECIFIED ORGANISM Status: Acute Qualifiers: Sepsis type: Streptococcus group B Qualified Code(s): A40.1 - Sepsis due to streptococcus, group B (2) Bacteremia Code(s): R78.81 - BACTEREMIA Status: Acute Comment: strep pneumo (3) Septic arthritis Status: Acute Qualifiers: Septic arthritis location: knee Comment: likely b/l (4) SABINO (acute kidney injury) Code(s): N17.9 - ACUTE KIDNEY FAILURE, UNSPECIFIED Status: Resolved (5) Metabolic acidosis Code(s): E87.2 - ACIDOSIS Status: Acute Comment: resolving (6) DM type 2 (diabetes mellitus, type 2) Status: Chronic Qualifiers: Diabetes mellitus detention insulin use: without detention use (7) HTN (hypertension) Code(s): I10 - ESSENTIAL (PRIMARY) HYPERTENSION Status: Chronic Qualifiers: Hypertension type: essential hypertension Qualified Code(s): I10 - Essential (primary) hypertension (8) Dyslipidemia Code(s): E78.5 - HYPERLIPIDEMIA, UNSPECIFIED Status: Chronic (9) Chronic anemia Code(s): D64.9 - ANEMIA, UNSPECIFIED Status: Chronic - Plan hemostable -: is on ceftriaxone -: continue PT as tolerated -: awaiting placement, medically stable for dc -: continue alogliptin, norvasc, myrbetriq * . Review of Systems - Medications/Allergies Allergies/Adverse Reactions: Allergies Allergy/AdvReac Type Severity Reaction Status Date / Time No Known Allergies Allergy Unverified 08/21/18 16:13 Medications: Current Medications Acetaminophen (Tylenol) 650 mg PO Q4H PRN PRN Reason: Headache/Fever or Pain (1-3) Last Admin: 08/26/18 05:46 Dose: 650 mg Hydrocodone Bitart/Acetaminophen ([place] 5/325) 1 tab PO Q6HR PRN PRN Reason: Moderate to Severe Pain (6-10) Allopurinol (Zyloprim) 100 mg PO DAILY [facility] Last Admin: 08/26/18 10:33 Dose: 100 mg Alogliptin Benzoate (Alogliptin) 12.5 mg PO DAILY [facility] Last Admin: 08/26/18 10:42 Dose: 12.5 mg Amlodipine Besylate (Norvasc) 10 mg PO DAILY [facility] Last Admin: 08/26/18 10:33 Dose: 10 mg Benzonatate (Tessalon) 100 mg PO Q6H PRN PRN Reason: Cough Bisacodyl (Dulcolax) 10 mg PO DAILYPRN PRN PRN Reason: Constipation Clonidine (Catapres) 0.1 mg PO Q4H PRN PRN Reason: SBP > 160____ Dextrose/Water (Dextrose 50%) 25 gm SLOW IVP PRN PRN PRN Reason: Hypoglycemia Enoxaparin Sodium (Lovenox) 30 mg SC 0900 [facility] Last Admin: 08/26/18 10:32 Dose: 30 mg Famotidine (Pepcid) 20 mg PO QPM [facility] Last Admin: 08/25/18 20:43 Dose: 20 mg Fentanyl (Sublimaze) 50 mcg SLOW IVP Q30MIN PRN PRN Reason: Severe Pain (7-10) Glucagon (Glucagon) 1 mg IM PRN PRN PRN Reason: Hypoglycemia Guaifenesin (Robitussin Sf) 200 mg PO Q4H PRN PRN Reason: Cough Hydralazine HCl (Apresoline) 10 mg SLOW IVP Q4H PRN PRN Reason: SBP > 180 and HR < 70 Dextrose/Water (D5w) 1,000 mls @ 0 mls/hr IV .Q0M PRN PRN Reason: Hypoglycemia Sodium Chloride (Normal Saline 0.9%) 1,000 mls @ 75 mls/hr IV INF [facility] Last Admin: 08/26/18 05:47 Dose: 1,000 mls Ceftriaxone Sodium 2 gm/ (Sodium Chloride) 100 mls @ 200 mls/hr IVPB Q24HR [facility] Last Admin: 08/25/18 16:52 Dose: 100 mls Insulin Human Lispro (Humalog) 0 units SC .MODERATE SLIDING SC PRN PRN Reason: Moderate Correctional Scale Last Admin: 08/26/18 06:50 Dose: 2 units Losartan Potassium (Cozaar) 50 mg PO DAILY [facility] Last Admin: 08/26/18 10:32 Dose: 50 mg Mirabegron (Myrbetriq Er) 25 mg PO DAILY [facility] Last Admin: 08/26/18 10:33 Dose: 25 mg Ondansetron HCl (Zofran Odt) 4 mg PO Q6H PRN PRN Reason: Nausea/Vomiting Last Admin: 08/25/18 08:37 Dose: 4 mg Senna/Docusate Sodium (Senokot S) 2 tab PO BIDPRN PRN PRN Reason: Constipation Sodium Chloride (Flush - Normal Saline) 10 ml IVF PRN PRN PRN Reason: Saline Flush Sodium Chloride (Flush - Normal Saline) 10 ml IVF PRN PRN PRN Reason: Saline Flush Tramadol HCl (Ultram) 100 mg PO Q6H PRN PRN Reason: Moderate Pain (4-6) Last Admin: 08/26/18 10:42 Dose: 100 mg
--- NOTE | 2018-08-26 15:00 | EKG ---
Test Reason : EMERGENCY EXAM Blood Pressure : / mmHG Vent. Rate : 085 BPM Atrial Rate : 085 BPM P-R Int : 126 ms QRS Dur : 066 ms QT Int : 376 ms P-R-T Axes : 067 -27 010 degrees QTc Int : 447 ms Sinus rhythm with marked sinus arrhythmia Left axis deviation Otherwise normal ECG Confirmed by SUPA PALMA, DEIRDRE ([id number]), hip hop performers ANTHONY MORRIS ([id number]) on 08/26/2018 3:00:17 PM Referred By: SUPA Confirmed By:DEIRDRE COWART MD
[2018-08-26] MEDS: cefTRIAXone\\ROCEPHIN 2 GM in Sodium Chloride 0.9% 100 ML IVPB SCH (18:07)
[2018-08-26] MEDS: Loperamide HCl 2 MG CAP PO PRN (18:07)
[2018-08-26] MEDS: Famotidine 20 MG TAB PO SCH (20:40)
[2018-08-27 08:05] LABS: #Eosinphils 0.6 thou/uL (0.0-0.7); #Lymphocytes 3.1 thou/uL (1.20-3.40); #Neutrophils 9.8 thou/uL (1.40-6.50); %Basophils 0.1 % (0.0-1.0); %Eosinophils 3.7 % (0.0-10.0); %Lymphocytes 20.2 % (21.0-51.0); %Monocytes 12.6 % (0.0-10.0); %Neutrophils 63.3 % (42.0-75.0); Mean Corpuscular HGB CONC 32.8 g/dL (32.0-36.0); Mean Corpuscular Hemoglobin 26.8 pg (27.0-31.0); Mean Corpuscular Volume 81.6 fL (78.0-98.0); Mean Platelet Volume 8.9 fL (7.4-10.4); Platelet Count 261 thou/uL (130-400); RBC Distribution Width 13.9 % (11.5-14.5); Red Blood Cell (RBC) Count 3.35 mill/uL (4.20-5.40); White Blood Cell (WBC) Count 15.5 thou/uL (4.8-10.8)
[2018-08-27 08:09] LABS: ALT (SGPT) 11 U/L (8-55); AST (SGOT) 16 U/L (5-34); Albumin 2.4 g/dL (3.4-4.8); Alkaline Phosphatase 42 U/L (40-150); Anion Gap 12 mmol/L (10-20); BUN (Urea Nitrogen) 13 mg/dL (9.8-20.1); Bilirubin, Total 0.3 mg/dL (0.2-1.2); Calc. Creatinine Clearance 51 mL/min (70-130); Calcium 8.9 mg/dL (7.8-10.44); Carbon Dioxide 23 mmol/L (23-31); Chloride 109 mmol/L (98-107); Estimated GFR-MDRD 73; Globulin 3.8 g/dL (2.4-3.5); Glucose 142 mg/dL (83-110); Potassium 3.5 mmol/L (3.5-5.1); Protein, Total 6.2 g/dL (6.0-8.3); Sodium 140 mmol/L (136-145)
[2018-08-27] MEDS: Enoxaparin Sodium 30 MG/0.3 ML SYRINGE SC SCH (09:25)
[2018-08-27] MEDS: Losartan 25 MG TAB PO SCH (09:26)
[2018-08-27] MEDS: Amlodipine 10 MG TAB PO SCH (09:26)
[2018-08-27] MEDS: Alogliptin 25 MG TAB PO SCH (09:26)
[2018-08-27] MEDS: Allopurinol 100 MG TAB PO SCH (09:27)
[2018-08-27] MEDS: HumaLOG 300 UNITS/3 ML VIAL SC PRN (12:43)
--- NOTE | 2018-08-27 12:46 | PDOC.PN ---
- Subjective Encounter Start Date: 08/27/18 Encounter Start Time: 09:30 Subjective: is able to barely stand with assitance and PT -: no chest pain or sob - Objective Resuscitation Status - Order Detail: 08/21/18 16:27 Resuscitation Status Routine Resuscitation Status: FULL: Full Resuscitation Discussed with: discussed w pt MAR Reviewed: Yes Vital Signs & Weight: Vital Signs (12 hours) Temp Pulse Resp BP BP Pulse Ox 08/27/18 11:29 99.5 F 91 20 121/73 95 08/27/18 08:02 98.4 F 86 18 137/73 97 08/27/18 04:30 98.7 F 86 16 131/77 94 L Weight Weight 145 lb 12.8 oz I&O: 08/26/18 08/27/18 08/28/18 06:59 06:59 06:59 Intake Total 2655 3240 Output Total 2490 3165 Balance 165 75 Result Diagrams: 08/27/18 07:41 08/27/18 07:41 Additional Labs: Accuchecks 08/27/18 08/27/18 08/26/18 11:27 05:11 20:41 POC Glucose 188 H 124 H 95 08/26/18 16:14 POC Glucose 207 H Phys Exam - Physical Examination HEENT: PERRLA, moist MMs Neck: no JVD, supple Respiratory: no wheezing, no rales Cardiovascular: RRR, no significant murmur Gastrointestinal: soft, non-tender, positive bowel sounds Musculoskeletal: pulses present Neurological: non-focal, moves all 4 limbs Psychiatric: normal affect, A&O x 3 Dx/Plan (1) Sepsis Code(s): A41.9 - SEPSIS, UNSPECIFIED ORGANISM Status: Acute Qualifiers: Sepsis type: Streptococcus group B Qualified Code(s): A40.1 - Sepsis due to streptococcus, group B (2) Bacteremia Code(s): R78.81 - BACTEREMIA Status: Acute Comment: strep pneumo (3) Septic arthritis Status: Acute Qualifiers: Septic arthritis location: knee Comment: likely b/l (4) SABINO (acute kidney injury) Code(s): N17.9 - ACUTE KIDNEY FAILURE, UNSPECIFIED Status: Resolved (5) Metabolic acidosis Code(s): E87.2 - ACIDOSIS Status: Resolved (6) DM type 2 (diabetes mellitus, type 2) Status: Chronic Qualifiers: Diabetes mellitus nursing home insulin use: without nursing home use (7) HTN (hypertension) Code(s): I10 - ESSENTIAL (PRIMARY) HYPERTENSION Status: Chronic Qualifiers: Hypertension type: essential hypertension Qualified Code(s): I10 - Essential (primary) hypertension (8) Dyslipidemia Code(s): E78.5 - HYPERLIPIDEMIA, UNSPECIFIED Status: Chronic (9) Chronic anemia Code(s): D64.9 - ANEMIA, UNSPECIFIED Status: Chronic - Plan hemostable -: needs to amb and work with PT, suggest pain meds 30min prior to PT -: is medically stable for dc to snf if accepted -: is on ceftriaxone, alogliptin, norvasc, myrbetriq -: add feso4, fentanyl and ultram prn * . Review of Systems - Medications/Allergies Allergies/Adverse Reactions: Allergies Allergy/AdvReac Type Severity Reaction Status Date / Time No Known Allergies Allergy Unverified 08/21/18 16:13 Medications: Current Medications Acetaminophen (Tylenol) 650 mg PO Q4H PRN PRN Reason: Headache/Fever or Pain (1-3) Last Admin: 08/26/18 05:46 Dose: 650 mg Hydrocodone Bitart/Acetaminophen ([place] 5/325) 1 tab PO Q6HR PRN PRN Reason: Moderate to Severe Pain (6-10) Allopurinol (Zyloprim) 100 mg PO DAILY [facility] Last Admin: 08/27/18 09:27 Dose: 100 mg Alogliptin Benzoate (Alogliptin) 12.5 mg PO DAILY [facility] Last Admin: 08/27/18 09:26 Dose: 12.5 mg Amlodipine Besylate (Norvasc) 10 mg PO DAILY [facility] Last Admin: 08/27/18 09:26 Dose: 10 mg Benzonatate (Tessalon) 100 mg PO Q6H PRN PRN Reason: Cough Bisacodyl (Dulcolax) 10 mg PO DAILYPRN PRN PRN Reason: Constipation Clonidine (Catapres) 0.1 mg PO Q4H PRN PRN Reason: SBP > 160____ Dextrose/Water (Dextrose 50%) 25 gm SLOW IVP PRN PRN PRN Reason: Hypoglycemia Enoxaparin Sodium (Lovenox) 30 mg SC 0900 [facility] Last Admin: 07/18/19 09:25 Dose: 30 mg Famotidine (Pepcid) 20 mg PO QPM [facility] Last Admin: 08/26/18 20:40 Dose: 20 mg Fentanyl (Sublimaze) 50 mcg SLOW IVP Q30MIN PRN PRN Reason: Severe Pain (7-10) Glucagon (Glucagon) 1 mg IM PRN PRN PRN Reason: Hypoglycemia Guaifenesin (Robitussin Sf) 200 mg PO Q4H PRN PRN Reason: Cough Hydralazine HCl (Apresoline) 10 mg SLOW IVP Q4H PRN PRN Reason: SBP > 180 and HR < 70 Dextrose/Water (D5w) 1,000 mls @ 0 mls/hr IV .Q0M PRN PRN Reason: Hypoglycemia Ceftriaxone Sodium 2 gm/ (Sodium Chloride) 100 mls @ 200 mls/hr IVPB Q24HR [facility] Last Admin: 08/26/18 18:07 Dose: 100 mls Insulin Human Lispro (Humalog) 0 units SC .MODERATE SLIDING SC PRN PRN Reason: Moderate Correctional Scale Last Admin: 08/26/18 18:07 Dose: 4 units Loperamide HCl (Imodium) 2 mg PO DAILY PRN PRN Reason: Diarrhea/Loose Stools Last Admin: 08/26/18 18:07 Dose: 2 mg Losartan Potassium (Cozaar) 50 mg PO DAILY [facility] Last Admin: 08/27/18 09:26 Dose: 50 mg Mirabegron (Myrbetriq Er) 25 mg PO DAILY [facility] Last Admin: 08/27/18 09:27 Dose: 25 mg Ondansetron HCl (Zofran Odt) 4 mg PO Q6H PRN PRN Reason: Nausea/Vomiting Last Admin: 08/25/18 08:37 Dose: 4 mg Senna/Docusate Sodium (Senokot S) 2 tab PO BIDPRN PRN PRN Reason: Constipation Sodium Chloride (Flush - Normal Saline) 10 ml IVF PRN PRN PRN Reason: Saline Flush Sodium Chloride (Flush - Normal Saline) 10 ml IVF PRN PRN PRN Reason: Saline Flush Tramadol HCl (Ultram) 100 mg PO Q6H PRN PRN Reason: Moderate Pain (4-6) Last Admin: 08/26/18 10:42 Dose: 100 mg
[2018-08-27] MEDS: cefTRIAXone\\ROCEPHIN 2 GM in Sodium Chloride 0.9% 100 ML IVPB SCH (18:34)
[2018-08-27] MEDS: Famotidine 20 MG TAB PO SCH (20:10)
[2018-08-28] MEDS: HumaLOG 300 UNITS/3 ML VIAL SC PRN ×2 (06:03→17:07)
[2018-08-28] MEDS: Alogliptin 25 MG TAB PO SCH (09:31)
[2018-08-28] MEDS: Losartan 25 MG TAB PO SCH (09:31)
[2018-08-28] MEDS: Enoxaparin Sodium 30 MG/0.3 ML SYRINGE SC SCH (09:31)
[2018-08-28] MEDS: Ferrous Sulfate 325 MG TAB PO SCH (09:32)
[2018-08-28] MEDS: Amlodipine 10 MG TAB PO SCH (09:32)
[2018-08-28] MEDS: Allopurinol 100 MG TAB PO SCH (09:32)
--- NOTE | 2018-08-28 14:51 | PRG ---
DATE OF SERVICE: 08/28/2018 SUBJECTIVE: Ms. Last is feeling better. I think she is going to be transferred to [place] to continue her treatment. No headaches. No dyspnea or chest pain. Little bit of cough. No abdominal pain. Eating well without vomiting or nausea. Not much pain in the involved knee. OBJECTIVE: VITAL SIGNS: Normal. She is afebrile. T-max was 99.5. GENERAL: Awake, alert, and oriented. LUNGS: Clear. CARDIAC: S1 and S2. Regular rate. ABDOMEN: Soft, not distended. : Still has a Rosario catheter in place. LABORATORY DATA: White cell count 15.5, hemoglobin 9.0, and platelets 261. Creatinine 0.89. Liver profile normal. The patient has developed diarrhea over the past 48 hours. C. diff test was ordered, but sample has not been collected yet. 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 The patient has a PICC line and will be transferred to, I believe, [place] on Rocephin 2 g daily with weekly labs. Since the implants were retained with a washout and liner replacement, the patient will need to continue on suppressive therapy and I would recommend Keflex and rifampin for 3 months and after that just suppressive Keflex for a protracted period of time. Job ID: [id number]
--- NOTE | 2018-08-28 15:18 | PDOC.PN ---
- Subjective Encounter Start Date: 08/28/18 Encounter Start Time: 15:16 Ms. Last was seen today in follow-up of septic knee. She says she just got back from therapy, and she is feeling fine. She says she is not in pain. - Objective Resuscitation Status - Order Detail: 08/21/18 16:27 Resuscitation Status Routine Resuscitation Status: FULL: Full Resuscitation Discussed with: discussed w pt MAR Reviewed: Yes Vital Signs & Weight: Vital Signs (12 hours) Temp Pulse Resp BP Pulse Ox 08/28/18 11:53 99.5 F 92 14 122/71 95 08/28/18 07:41 98.4 F 85 14 116/65 98 08/28/18 04:20 98.8 F 82 16 129/67 98 Weight Weight 145 lb 12.8 oz I&O: 08/27/18 08/28/18 08/29/18 06:59 06:59 06:59 Intake Total 3240 2260 Output Total 3165 2600 Balance 75 -340 Result Diagrams: 08/27/18 07:41 08/27/18 07:41 Additional Labs: Accuchecks 08/28/18 08/28/18 08/27/18 10:53 05:56 20:37 POC Glucose 148 H 165 H 141 H 08/27/18 15:29 POC Glucose 139 H Phys Exam - Physical Examination HEENT: PERRLA Respiratory: no wheezing, no rales, no rhonchi, clear to auscultation bilateral Cardiovascular: RRR, no significant murmur, no rub Gastrointestinal: soft, non-tender, no distention, positive bowel sounds Musculoskeletal: no edema, pulses present + knees are both wrapped Dx/Plan (1) Bacteremia Code(s): R78.81 - BACTEREMIA Status: Acute Comment: strep pneumo (2) Septic arthritis Status: Acute Qualifiers: Septic arthritis location: knee Comment: likely b/l (3) DM type 2 (diabetes mellitus, type 2) Status: Chronic Qualifiers: Diabetes mellitus terminal carman insulin use: without senior living use (4) HTN (hypertension) Code(s): I10 - ESSENTIAL (PRIMARY) HYPERTENSION Status: Chronic Qualifiers: Hypertension type: essential hypertension Qualified Code(s): I10 - Essential (primary) hypertension - Plan * Bilateral knee joint infection- continue Rocephin IV, and ID recommendations noted * HTN- blood pressure is stable * DM- blood glucose is stable * Awaiting [facility] placement
[2018-08-28] MEDS: cefTRIAXone\\ROCEPHIN 2 GM in Sodium Chloride 0.9% 100 ML IVPB SCH (17:07)
[2018-08-28] MEDS: Famotidine 20 MG TAB PO SCH (20:29)
[2018-08-28] MEDS: Acetaminophen 325 MG TAB PO PRN (20:29)
[2018-08-29] MEDS: HumaLOG 300 UNITS/3 ML VIAL SC PRN (06:44)
[2018-08-29] MEDS: Allopurinol 100 MG TAB PO SCH (09:01)
[2018-08-29] MEDS: Losartan 25 MG TAB PO SCH (09:01)
[2018-08-29] MEDS: Amlodipine 10 MG TAB PO SCH (09:02)
[2018-08-29] MEDS: Ferrous Sulfate 325 MG TAB PO SCH (09:02)
[2018-08-29] MEDS: Alogliptin 25 MG TAB PO SCH (09:02)
[2018-08-29] MEDS: Enoxaparin Sodium 30 MG/0.3 ML SYRINGE SC SCH (09:03)
--- NOTE | 2018-08-29 11:14 | PDOC.PN ---
- Subjective Encounter Start Date: 08/29/18 Encounter Start Time: 11:12 Ms. Last was seen today in follow-up of septic arthritis. She notes some diarrhea over the past few days. - Objective Resuscitation Status - Order Detail: 08/21/18 16:27 Resuscitation Status Routine Resuscitation Status: FULL: Full Resuscitation Discussed with: discussed w pt MART Reviewed: Yes Vital Signs & Weight: Vital Signs (12 hours) Temp Pulse Resp BP BP Pulse Ox 08/29/18 09:02 86 107/61 08/29/18 07:49 98.6 F 86 20 107/61 98 08/29/18 04:49 98.6 F 75 16 119/68 94 L 08/29/18 01:28 98.5 F 85 16 119/70 95 Weight Weight 145 lb 12.8 oz I&O: 08/28/18 08/29/18 08/30/18 06:59 06:59 06:59 Intake Total 2260 1280 Output Total 2600 1300 Balance -340 -20 Result Diagrams: 08/27/18 07:41 08/27/18 07:41 Additional Labs: Accuchecks 08/29/18 08/28/18 08/28/18 06:09 20:43 15:31 POC Glucose 163 H 93 174 H 08/28/18 10:53 POC Glucose 148 H Phys Exam - Physical Examination HEENT: PERRLA Respiratory: no wheezing, no rales, no rhonchi, clear to auscultation bilateral Cardiovascular: RRR, no significant murmur, no rub Gastrointestinal: soft, non-tender, no distention, positive bowel sounds Musculoskeletal: no edema, pulses present Neurological: non-focal, normal sensation Dx/Plan (1) Bacteremia Code(s): R78.81 - BACTEREMIA Status: Acute Comment: strep pneumo (2) Septic arthritis Status: Acute Qualifiers: Septic arthritis location: knee Comment: likely b/l (3) DM type 2 (diabetes mellitus, type 2) Status: Chronic Qualifiers: Diabetes mellitus laborer marine terminal insulin use: without laborer marine terminal use (4) HTN (hypertension) Code(s): I10 - ESSENTIAL (PRIMARY) HYPERTENSION Status: Chronic Qualifiers: Hypertension type: essential hypertension Qualified Code(s): I10 - Essential (primary) hypertension - Plan * Septic arthritis of both knees- blood cultures are positive for Strep pneumonia and the plan is for halfway Rocephin. * Diarrhea- this has been intermittent- will follow-up on the stool studies which were ordered * DM- blood glucose is stable * HTN- Blood pressure is stable * Awaiting senior care placement
[2018-08-29] MEDS: Loperamide HCl 2 MG CAP PO PRN (14:18)
[2018-08-29] MEDS: cefTRIAXone\\ROCEPHIN 2 GM in Sodium Chloride 0.9% 100 ML IVPB SCH (19:15)
[2018-08-29] MEDS: Famotidine 20 MG TAB PO SCH (20:44)
[2018-08-29] MEDS: Acetaminophen 325 MG TAB PO PRN (20:44)
[2018-08-30] MEDS: Losartan 25 MG TAB PO SCH (09:48)
[2018-08-30] MEDS: Allopurinol 100 MG TAB PO SCH (09:49)
[2018-08-30] MEDS: Ferrous Sulfate 325 MG TAB PO SCH (09:49)
[2018-08-30] MEDS: Alogliptin 25 MG TAB PO SCH (09:49)
[2018-08-30] MEDS: Amlodipine 10 MG TAB PO SCH (09:49)
[2018-08-30] MEDS: Enoxaparin Sodium 30 MG/0.3 ML SYRINGE SC SCH (09:50)
[2018-08-30] MEDS: Loperamide HCl 2 MG CAP PO PRN (12:51)
--- NOTE | 2018-08-30 14:36 | PDOC.PN ---
- Subjective Encounter Start Date: 08/30/18 Encounter Start Time: 13:00 Mr. Last was seen today in follow-up of bilateral infection of both knees. she notes some soreness in the left knee, mainly when she tries to put some weight on it. Otherwise ok. - Objective Resuscitation Status - Order Detail: 08/21/18 16:27 Resuscitation Status Routine Resuscitation Status: FULL: Full Resuscitation Discussed with: discussed w pt MAR Reviewed: Yes Vital Signs & Weight: Vital Signs (12 hours) Temp Pulse Resp BP BP Pulse Ox 08/30/18 11:50 98.8 F 88 15 117/64 98 08/30/18 09:49 82 119/61 08/30/18 08:19 98.2 F 82 14 119/61 97 08/30/18 04:26 98.3 F 76 16 107/67 97 Weight Weight 145 lb 12.8 oz I&O: 08/29/18 08/30/18 08/31/18 06:59 06:59 06:59 Intake Total 1280 500 Output Total 1300 Balance -20 500 Result Diagrams: 08/27/18 07:41 08/27/18 07:41 Additional Labs: Accuchecks 08/30/18 08/30/18 08/29/18 10:55 06:34 22:07 POC Glucose 147 H 145 H 170 H 08/29/18 16:14 POC Glucose 138 H Phys Exam - Physical Examination HEENT: PERRLA Respiratory: no wheezing, no rales, no rhonchi, clear to auscultation bilateral Cardiovascular: RRR, no significant murmur, no rub Gastrointestinal: soft, non-tender, no distention, positive bowel sounds Musculoskeletal: edema present + mild effusion on the left knee, no warmth. stapples look good on both knees, no erythema, or drainage Neurological: non-focal, normal sensation Dx/Plan (1) Bacteremia Code(s): R78.81 - BACTEREMIA Status: Acute Comment: strep pneumo (2) Septic arthritis Status: Acute Qualifiers: Septic arthritis location: knee Comment: likely b/l (3) DM type 2 (diabetes mellitus, type 2) Status: Chronic Qualifiers: Diabetes mellitus detention insulin use: without intermediate project manager use (4) HTN (hypertension) Code(s): I10 - ESSENTIAL (PRIMARY) HYPERTENSION Status: Chronic Qualifiers: Hypertension type: essential hypertension Qualified Code(s): I10 - Essential (primary) hypertension - Plan * Strep pneumoniae bacteremia with bilateral septic knee joints with prosthesis - continue Rocephin * Continue PT/OT * DM-. blood glucose is stable * HTN- blood pressure is stable * Awaiting placement
[2018-08-30] MEDS: cefTRIAXone\\ROCEPHIN 2 GM in Sodium Chloride 0.9% 100 ML IVPB SCH (17:31)
[2018-08-30] MEDS: Famotidine 20 MG TAB PO SCH (20:07)
[2018-08-30] MEDS: HumaLOG 300 UNITS/3 ML VIAL SC PRN (21:45)
[2018-08-31] MEDS: Losartan 25 MG TAB PO SCH (09:20)
[2018-08-31] MEDS: Enoxaparin Sodium 30 MG/0.3 ML SYRINGE SC SCH (09:20)
[2018-08-31] MEDS: Alogliptin 25 MG TAB PO SCH (09:20)
[2018-08-31] MEDS: Amlodipine 10 MG TAB PO SCH (09:20)
[2018-08-31] MEDS: Ferrous Sulfate 325 MG TAB PO SCH (09:20)
[2018-08-31] MEDS: Allopurinol 100 MG TAB PO SCH (09:20)
[2018-08-31] MEDS: HumaLOG 300 UNITS/3 ML VIAL SC PRN ×2 (12:41→21:08)
--- NOTE | 2018-08-31 17:14 | PDOC.PN ---
- Subjective Encounter Start Date: 08/31/18 Encounter Start Time: 17:12 Ms. Last was seen today in follow-up of sepsis of both knees. She notes some discomfort in the left knee, otherwise ok. - Objective Resuscitation Status - Order Detail: 08/21/18 16:27 Resuscitation Status Routine Resuscitation Status: FULL: Full Resuscitation Discussed with: discussed w pt MART Reviewed: Yes Vital Signs & Weight: Vital Signs (12 hours) Temp Pulse Resp BP Pulse Ox 08/31/18 15:34 98.9 F 81 16 131/67 97 08/31/18 11:36 98.1 F 82 14 115/67 97 08/31/18 07:25 98.4 F 77 14 125/56 L 98 Weight Weight 145 lb 12.8 oz I&O: 08/30/18 08/31/18 09/01/18 06:59 06:59 06:59 Intake Total 500 Balance 500 Result Diagrams: 08/27/18 07:41 08/27/18 07:41 Additional Labs: Accuchecks 08/31/18 08/31/18 08/31/18 15:33 11:36 06:24 POC Glucose 123 H 211 H 138 H 08/30/18 21:46 POC Glucose 170 H Phys Exam - Physical Examination HEENT: PERRLA Respiratory: no wheezing, no rales, no rhonchi, clear to auscultation bilateral Cardiovascular: RRR, no significant murmur, no rub Gastrointestinal: soft, non-tender, no distention, positive bowel sounds Musculoskeletal: pulses present, edema present Dx/Plan (1) Bacteremia Code(s): R78.81 - BACTEREMIA Status: Acute Comment: strep pneumo (2) Septic arthritis Status: Acute Qualifiers: Septic arthritis location: knee Comment: likely b/l (3) DM type 2 (diabetes mellitus, type 2) Status: Chronic Qualifiers: Diabetes mellitus group home insulin use: without group home use (4) HTN (hypertension) Code(s): I10 - ESSENTIAL (PRIMARY) HYPERTENSION Status: Chronic Qualifiers: Hypertension type: essential hypertension Qualified Code(s): I10 - Essential (primary) hypertension - Plan * Bilateral septic knees- presumed due to Strep pneumonae- continue Rocephin * DM- blood glucose is stable * HTN- blood pressure is stable * Awaiting placement to skilled/rehab.
[2018-08-31] MEDS: cefTRIAXone\\ROCEPHIN 2 GM in Sodium Chloride 0.9% 100 ML IVPB SCH (17:51)
[2018-08-31] MEDS: Famotidine 20 MG TAB PO SCH (21:08)
[2018-09-01] MEDS: Acetaminophen 325 MG TAB PO PRN (07:03)
[2018-09-01] MEDS: Ferrous Sulfate 325 MG TAB PO SCH (08:53)
[2018-09-01] MEDS: Amlodipine 10 MG TAB PO SCH (08:53)
[2018-09-01] MEDS: Alogliptin 25 MG TAB PO SCH (08:53)
[2018-09-01] MEDS: Allopurinol 100 MG TAB PO SCH (08:53)
[2018-09-01] MEDS: Losartan 25 MG TAB PO SCH (08:53)
[2018-09-01] MEDS: Enoxaparin Sodium 30 MG/0.3 ML SYRINGE SC SCH (08:54)
[2018-09-01] MEDS: HumaLOG 300 UNITS/3 ML VIAL SC PRN ×2 (12:26→21:50)
--- NOTE | 2018-09-01 14:59 | PDOC.HOSPP ---
- Subjective Subjective: Ms. Last was seen today in follow-up of septic arthritis of both knees. She says the pain has improved. She does not have any other complaints, other than she is ready to to jail. - Objective Vital Signs & Weight: Vital Signs (12 hours) Temp Pulse Resp BP Pulse Ox 09/01/18 11:31 98.0 F 74 12 126/61 99 09/01/18 07:26 98.4 F 77 14 129/73 97 09/01/18 03:50 98.7 F 79 18 114/68 96 Weight Admit Weight 145 lb 12.8 oz Weight 145 lb 12.8 oz I&O: 08/31/18 09/01/18 09/02/18 06:59 06:59 06:59 Intake Total 1260 Balance 1260 Result Diagrams: 08/27/18 07:41 08/27/18 07:41 Additional Labs: Accuchecks 09/01/18 09/01/18 08/31/18 11:17 05:17 21:05 POC Glucose 155 H 136 H 182 H 08/31/18 15:33 POC Glucose 123 H ROS - Review of Systems All systems: All other ROS were reviewed and found negative. - Medication Medications: Active Medications Generic Name Dose Route Start Last Admin Trade Name Freq PRN Reason Stop Dose Admin Acetaminophen 650 mg 08/22/18 17:02 09/01/18 07:03 Tylenol PO 650 mg Q4H PRN Administration Headache/Fever or Pain (1-3) Allopurinol 100 mg 08/22/18 09:00 09/01/18 08:53 Zyloprim PO 100 mg DAILY LY Administration Alogliptin Benzoate 12.5 mg 08/26/18 09:00 09/01/18 08:53 Alogliptin PO 12.5 mg DAILY LY Administration Amlodipine Besylate 10 mg 08/22/18 09:00 09/01/18 08:53 Norvasc PO 10 mg DAILY LY Administration Enoxaparin Sodium 30 mg 08/23/18 09:00 09/01/18 08:54 Lovenox SC 30 mg 0900 LY Administration Famotidine 20 mg 08/22/18 21:00 08/31/18 21:08 Pepcid PO 20 mg QPM LY Administration Ferrous Sulfate 325 mg 08/28/18 08:00 09/01/18 08:53 Feosol PO 325 mg QAM-WM LY Administration Ceftriaxone Sodium 2 gm/ 100 mls @ 200 mls/hr 08/22/18 17:30 08/31/18 17:51 Sodium Chloride IVPB 100 mls Q24HR LY Administration Insulin Human Lispro 0 units 08/21/18 15:59 09/01/18 12:26 Humalog SC 2 units .MODERATE SLIDING SC PRN Administration Moderate Correctional Scale Loperamide HCl 2 mg 08/26/18 16:53 08/30/18 12:51 Imodium PO 2 mg DAILY PRN Administration Diarrhea/Loose Stools Losartan Potassium 50 mg 08/24/18 09:00 09/01/18 08:53 Cozaar PO 50 mg DAILY LY Administration Mirabegron 25 mg 08/22/18 09:00 09/01/18 08:52 Myrbetriq Er PO 25 mg DAILY LY Administration Ondansetron HCl 4 mg 08/21/18 16:27 08/25/18 08:37 Zofran Odt PO 4 mg Q6H PRN Administration Nausea/Vomiting Tramadol HCl 100 mg 08/23/18 11:20 08/26/18 10:42 Ultram PO 100 mg Q6H PRN Administration Moderate Pain (4-6) - Exam Eye: PERRL, anicteric sclera Heart: RRR, no murmur, no gallops, no rubs, normal peripheral pulses Respiratory: CTAB, no wheezes, no rales, no ronchi Gastrointestinal: soft, non-tender, non-distended, normal bowel sounds Extremities: no cyanosis, no clubbing, no edema Hosp A/P (1) Bacteremia Code(s): R78.81 - BACTEREMIA Status: Acute (2) Septic arthritis Status: Acute Qualifiers: Septic arthritis location: knee (3) DM type 2 (diabetes mellitus, type 2) Status: Chronic Qualifiers: Diabetes mellitus exterminator helper termite insulin use: without halfway use (4) HTN (hypertension) Code(s): I10 - ESSENTIAL (PRIMARY) HYPERTENSION Status: Chronic Qualifiers: Hypertension type: essential hypertension Qualified Code(s): I10 - Essential (primary) hypertension - Plan * Bilateral septic arthritis- continue Rocephin for approximately 3 months * DM- blood glucose is stable * HTN- blood pressure is stable * Continue PT/OT * and awaiting jail placement
--- NOTE | 2018-09-01 17:10 | PRG ---
DATE OF SERVICE: 09/01/2018 SUBJECTIVE: Able to bear weight now. She was able to ambulate with assistance. She has no dyspnea, no chest pain, and no diarrhea and they are waiting on the disposition for the insurance approval for her to go to rehab. OBJECTIVE: VITAL SIGNS: T-max is 99. Other vital signs are normal. LUNGS: Clear. HEART: S1 and S2, regular rate. ABDOMEN: Soft and not distended. EXTREMITIES: Knees appear normal with very little inflammatory change, pretty dry incisions. LABORATORY DATA: White cell count 15.5, quite a few days ago, has not been repeated and platelets are 261 and the last creatinine was 0.8. Microbiology with strep pneumoniae. ASSESSMENT AND DISCUSSION: Type 2 diabetes, hypertension, bilateral total knee replacements, and strep pneumoniae infection of right and left knee replacements by darby susceptible strain. The patient has a PICC line and will continue Rocephin with weekly labs and date of therapy is October 04. Weekly labs after completion of the initial phase with Rocephin and transition to Keflex and rifampin for 3 months after that suppressive Keflex for protracted period of time. Job ID: [id number]
[2018-09-01] MEDS: cefTRIAXone\\ROCEPHIN 2 GM in Sodium Chloride 0.9% 100 ML IVPB SCH (17:57)
[2018-09-01] MEDS: Famotidine 20 MG TAB PO SCH (21:49)
[2018-09-02] MEDS: Allopurinol 100 MG TAB PO SCH (08:41)
[2018-09-02] MEDS: Ferrous Sulfate 325 MG TAB PO SCH (08:41)
[2018-09-02] MEDS: Alogliptin 25 MG TAB PO SCH (08:42)
[2018-09-02] MEDS: Losartan 25 MG TAB PO SCH (08:42)
[2018-09-02] MEDS: Enoxaparin Sodium 30 MG/0.3 ML SYRINGE SC SCH (08:42)
[2018-09-02] MEDS: Amlodipine 10 MG TAB PO SCH (08:42)
[2018-09-02] MEDS: HumaLOG 300 UNITS/3 ML VIAL SC PRN ×2 (11:32→21:20)
--- NOTE | 2018-09-02 11:34 | PDOC.HOSPP ---
- Subjective Subjective: Patient seen and examined. No new complaints. No overnight events - Objective Vital Signs & Weight: Vital Signs (12 hours) Temp Pulse Resp BP BP Pulse Ox 09/02/18 10:48 98 F 74 16 116/69 96 09/02/18 08:42 75 127/76 09/02/18 07:28 98.8 F 75 16 127/76 98 09/02/18 04:00 98.5 F 71 16 137/71 96 09/02/18 00:00 98.9 F 71 16 126/64 98 Weight Admit Weight 145 lb 12.8 oz Weight 145 lb 12.8 oz I&O: 09/01/18 09/02/18 09/03/18 06:59 06:59 06:59 Intake Total 1260 1420 Balance 1260 1420 Result Diagrams: 08/27/18 07:41 08/27/18 07:41 Additional Labs: Accuchecks 09/02/18 09/01/18 09/01/18 06:20 21:29 15:24 POC Glucose 142 H 179 H 119 H 09/01/18 11:17 POC Glucose 155 H ROS - Review of Systems All systems: All other ROS were reviewed and found negative. ENT: denies: ear pain, ear discharge, nose pain, nose discharge, nose congestion , mouth pain, mouth swelling, throat pain, throat swelling, other Respiratory: denies: cough, dry, shortness of breath, hemoptysis, SOB with excertion, pleuritic pain, sputum, wheezing, other Cardiovascular: denies: chest pain, palpitations, orthopnea, paroxysmal noc. dyspnea, edema, light headedness, other Gastrointestinal: denies: nausea, vomitting, abdominal pain, diarrhea, constipation, melena, hematochezia, other Genitourinary: denies: dysuria, frequency, incontinence, hematuria, retention, other Musculoskeletal: denies: neck pain, shoulder pain, arm pain, back pain, hand pain, leg pain, foot pain, other Skin: denies: rash, lesions, becky, bruising, other - Medication Medications: Active Medications Generic Name Dose Route Start Last Admin Trade Name Freq PRN Reason Stop Dose Admin Acetaminophen 650 mg 08/22/18 17:02 09/01/18 07:03 Tylenol PO 650 mg Q4H PRN Administration Headache/Fever or Pain (1-3) Allopurinol 100 mg 08/22/18 09:00 09/02/18 08:41 Zyloprim PO 100 mg DAILY LY Administration Alogliptin Benzoate 12.5 mg 08/26/18 09:00 09/02/18 08:42 Alogliptin PO 12.5 mg DAILY LY Administration Amlodipine Besylate 10 mg 08/22/18 09:00 09/02/18 08:42 Norvasc PO 10 mg DAILY LY Administration Enoxaparin Sodium 30 mg 08/23/18 09:00 09/02/18 08:42 Lovenox SC 30 mg 0900 LY Administration Famotidine 20 mg 08/22/18 21:00 09/01/18 21:49 Pepcid PO 20 mg QPM LY Administration Ferrous Sulfate 325 mg 08/28/18 08:00 09/02/18 08:41 Feosol PO 325 mg QAM-WM LY Administration Insulin Human Lispro 0 units 08/21/18 15:59 09/01/18 21:50 Humalog SC 2 units .MODERATE SLIDING SC PRN Administration Moderate Correctional Scale Loperamide HCl 2 mg 08/26/18 16:53 08/30/18 12:51 Imodium PO 2 mg DAILY PRN Administration Diarrhea/Loose Stools Losartan Potassium 50 mg 08/24/18 09:00 09/02/18 08:42 Cozaar PO 50 mg DAILY [facility] Administration Mirabegron 25 mg 08/22/18 09:00 09/02/18 08:42 Myrbetriq Er PO 25 mg DAILY [facility] Administration Ondansetron HCl 4 mg 08/21/18 16:27 08/25/18 08:37 Zofran Odt PO 4 mg Q6H PRN Administration Nausea/Vomiting Sodium Chloride 10 ml 08/21/18 16:18 09/02/18 08:42 Flush - Normal Saline IVF 10 ml PRN PRN Administration Saline Flush - Exam NAD, awake alert Eye: PERRL, anicteric sclera ENT: normocephalic atraumatic, no oropharyngeal lesions Neck: supple, symmetric, no JVD, no Thyromegaly Heart: RRR, no murmur, no gallops, no rubs Respiratory: CTAB, no wheezes, no rales, no ronchi Gastrointestinal: soft, non-tender, non-distended, normal bowel sounds Extremities: no cyanosis, no clubbing, no edema Skin: normal turgor, no lesions Neurological: CN's grossly intact, normal sensation to touch, no focal deficits Musculoskeletal: normal tone, normal strength, no muscle wasting Psychiatric: normal affect, normal behavior Hosp A/P (1) Bacteremia Code(s): R78.81 - BACTEREMIA Status: Acute (2) Sepsis Code(s): A41.9 - SEPSIS, UNSPECIFIED ORGANISM Status: Acute Qualifiers: Sepsis type: Streptococcus group B Qualified Code(s): A40.1 - Sepsis due to streptococcus, group B (3) Septic arthritis Status: Acute Qualifiers: Septic arthritis location: knee (4) Chronic anemia Code(s): D64.9 - ANEMIA, UNSPECIFIED Status: Chronic (5) DM type 2 (diabetes mellitus, type 2) Status: Chronic Qualifiers: Diabetes mellitus detention insulin use: without detention use (6) Dyslipidemia Code(s): E78.5 - HYPERLIPIDEMIA, UNSPECIFIED Status: Chronic (7) HTN (hypertension) Code(s): I10 - ESSENTIAL (PRIMARY) HYPERTENSION Status: Chronic Qualifiers: Hypertension type: essential hypertension Qualified Code(s): I10 - Essential (primary) hypertension (8) SABINO (acute kidney injury) Code(s): N17.9 - ACUTE KIDNEY FAILURE, UNSPECIFIED Status: Resolved (9) Metabolic acidosis Code(s): E87.2 - ACIDOSIS Status: Resolved - Plan old records reviewed/req, continue antibiotics, PT/OT, social work manager continue rocephin as per Dr Martin recommendation pt needs SNU placement spoke with [employer], she is working on that medication reviewed as below symptomatic treatment
[2018-09-02] MEDS: Loperamide HCl 2 MG CAP PO PRN (14:29)
[2018-09-02] MEDS ORDERED: HYDROcodone/Acetaminophen 5/325 mg Tablet PO PRN (14:56)
[2018-09-02] MEDS ORDERED: traMADol HCl 50 MG TAB PO PRN (14:57)
[2018-09-02] MEDS ORDERED: cefTRIAXone\\ROCEPHIN 2 GM in Sodium Chloride 0.9% 100 ML IVPB SCH (17:30)
[2018-09-02] MEDS: Famotidine 20 MG TAB PO SCH (21:20)
[2018-09-03 08:26] LABS: #Eosinphils 0.2 thou/uL (0.0-0.7); #Lymphocytes 2.3 thou/uL (1.20-3.40); #Monocytes 1.4 thou/uL (0.11-0.59); #Neutrophils 6.3 thou/uL (1.40-6.50); %Basophils 0.3 % (0.0-1.0); %Eosinophils 1.9 % (0.0-10.0); %Lymphocytes 22.5 % (21.0-51.0); %Monocytes 13.5 % (0.0-10.0); %Neutrophils 61.8 % (42.0-75.0); Hemoglobin 8.8 g/dL (12.0-16.0); Mean Corpuscular HGB CONC 33.4 g/dL (32.0-36.0); Mean Corpuscular Hemoglobin 26.9 pg (27.0-31.0); Mean Corpuscular Volume 80.5 fL (78.0-98.0); Mean Platelet Volume 7.6 fL (7.4-10.4); Platelet Count 471 thou/uL (130-400); Red Blood Cell (RBC) Count 3.28 mill/uL (4.20-5.40); White Blood Cell (WBC) Count 10.1 thou/uL (4.8-10.8)
[2018-09-03 08:47] LABS: ALT (SGPT) 9 U/L (8-55); AST (SGOT) 19 U/L (5-34); Albumin 2.7 g/dL (3.4-4.8); Alkaline Phosphatase 48 U/L (40-150); Anion Gap 9 mmol/L (10-20); BUN (Urea Nitrogen) 7 mg/dL (9.8-20.1); Bilirubin, Total 0.3 mg/dL (0.2-1.2); CRP (Inflammatory) 4.57 mg/dL (= or < 0.5); Calc. Creatinine Clearance 45 mL/min (70-130); Calcium 8.9 mg/dL (7.8-10.44); Carbon Dioxide 25 mmol/L (23-31); Chloride 108 mmol/L (98-107); Estimated GFR-MDRD 64; Globulin 3.9 g/dL (2.4-3.5); Glucose 145 mg/dL (83-110); Potassium 3.4 mmol/L (3.5-5.1); Protein, Total 6.6 g/dL (6.0-8.3); Sodium 139 mmol/L (136-145)
[2018-09-03] MEDS: Allopurinol 100 MG TAB PO SCH (08:55)
[2018-09-03] MEDS: Amlodipine 10 MG TAB PO SCH (08:55)
[2018-09-03] MEDS: Ferrous Sulfate 325 MG TAB PO SCH (08:56)
[2018-09-03] MEDS: Alogliptin 25 MG TAB PO SCH (08:56)
[2018-09-03] MEDS: Losartan 25 MG TAB PO SCH (08:56)
[2018-09-03] MEDS: Enoxaparin Sodium 30 MG/0.3 ML SYRINGE SC SCH (08:57)
[2018-09-03] MEDS: Loperamide HCl 2 MG CAP PO PRN (09:05)
[2018-09-03] MEDS: HumaLOG 300 UNITS/3 ML VIAL SC PRN (12:25)
--- NOTE | 2018-09-03 12:43 | DIS ---
DATE OF ADMISSION: 08/21/2018 DATE OF DISCHARGE: 09/03/2018 PRIMARY CARE PHYSICIAN: [facility] Call admission. DISCHARGE DISPOSITION: shelter home. PRIMARY DISCHARGE DIAGNOSES: 1. Sepsis bacteremia with Streptococcus pneumoniae septic arthritis. 2. Acute kidney injury, improved. 3. Metabolic acidosis, improved. SECONDARY DISCHARGE DIAGNOSES: 1. Hypertension. 2. Dyslipidemia. 3. Diabetes type 2. 4. Chronic normocytic anemia. PRIMARY PROCEDURE/OPERATION: 1. PICC line placement. 2. Irrigation and debridement of right knee with a tibial polyethylene exchange. 3. Irrigation and debridement of left knee joint. RADIOLOGICAL INVESTIGATION: Chest x-ray, knee x-ray. SIGNIFICANT LABORATORY DATA: Hemoglobin 8.8. Creatinine 1.0, potassium 3.4. CRP 4.57. Urinalysis unremarkable. Synovial fluid consistent with septic arthritis. Synovial fluid culture negative. Stool for infection workup negative. DISCHARGE MEDICATIONS: 1. The patient will continue Rocephin 2 g IV daily until October 04, 2018, as per Dr. Martin' recommendation. 2. Pepcid 20 mg daily. 3. Ferrous sulfate 325 mg p.o. daily. Continue following medications; 1. Randolph 5 one tablet q.6 hourly p.r.n. 2. Allopurinol 100 mg daily. 3. Norvasc 10 mg daily. 4. Tradjenta 5 mg daily. 5. Losartan 50 mg daily. 6. Mirabegron 25 mg p.o. daily. CONTRAINDICATION: None. CODE STATUS: Full code. INPATIENT TOOL LATHE OPERATOR: Dr. Phil Chiu was following for septic arthritis. Dr. Martin was consulted for septic arthritis and bacteremia. TEST RESULTS PENDING ON DISCHARGE: None. ALLERGIES: NO KNOWN DRUG ALLERGIES. DISCHARGE PLAN: Posthospital, the patient will follow up with primary orthopedic doctor, Dr. Phil Chiu as well as Dr. Martin as instructed. The patient will make appointment with primary care physician. HOSPITAL COURSE: An 82-year-old female who was admitted by Dr. Mota on August 21, 2018. Please see her H and P for further details. The patient was having high-grade fever and right knee pain. She was suspected for septic arthritis. Orthopedic physician was consulted, and they did irrigation and debridement of both knees. Her blood culture was positive for Strep pneumoniae. Her synovial fluid culture was negative. Dr. Martin was consulted, and he recommended to continue Rocephin until October 04, 2018. PICC line was placed. The patient's home medication was continued while in hospital. She stayed in hospital longer because she was waiting for outpatient IV antibiotic therapy arrangement at halfway home. The patient wanted to go to halfway home in [facility] that took longer to arrange. Otherwise, she was stable while in hospital. Orthopedic cleared her for discharge. The patient will need suture removal as an outpatient basis. She will follow up with orthopedic physician and ID team as an outpatient basis. Paperwork for discharge done and discharge medication reconciliation done. I have seen and examined the patient at bedside today. Her examination is unchanged. She will need PT, OT, and antibiotic therapy as mentioned above, and she will need PICC line care. Job ID: [id number]
[2018-09-03 15:31] VITALS: BP 110/62; TEMP 98.5
== END 2018-09-03 17:15 | DRG 485 ==
LOC: SCSER 09:33 → ERHOLD 11:18 → 2NO 16:27 → SURG A 08-23 16:03
PROVIDERS: ADMIT Internal Medicine; ATTEND Internal Medicine
PROC: 0SBD0ZZ Excision of Left Knee Joint, Open Approach (ICD-10-PCS; principal; 2018-08-23)
PROC: 0SBC0ZZ Excision of Right Knee Joint, Open Approach (ICD-10-PCS; 2018-08-23)
PROC: 0SPC09Z Removal of Liner from Right Knee Joint, Open Approach (ICD-10-PCS; 2018-08-23)
PROC: 0SUV09Z Supplement Right Knee Joint, Tibial Surface with Liner, Open Approach (ICD-10-PCS; 2018-08-23)
PROC: 02HV33Z Insertion of Infusion Device into Superior Vena Cava, Percutaneous Approach (ICD-10-PCS; 2018-08-25)
DX: T84.53XA Infection and inflammatory reaction due to internal right knee prosthesis, initial encounter (principal); A40.3 Sepsis due to Streptococcus pneumoniae; M00.861 Arthritis due to other bacteria, right knee; N17.9 Acute kidney failure, unspecified; E87.2 Acidosis; I10 Essential (primary) hypertension; E11.9 Type 2 diabetes mellitus without complications; D64.9 Anemia, unspecified; E78.5 Hyperlipidemia, unspecified; R19.7 Diarrhea, unspecified; Z96.653 Presence of artificial knee joint, bilateral; Y83.8 Other surgical procedures as the cause of abnormal reaction of the patient, or of later complication, without mention of misadventure at the time of the procedure; Z90.49 Acquired absence of other specified parts of digestive tract; Z90.710 Acquired absence of both cervix and uterus; Y92.9 Unspecified place or not applicable
CPT/HCPCS: 36415; 36416; 36569; 51701; 71046; 80048; 80053; 81003; 81015; 83605; 85025; 85027; 85060; 86140; 87040; 87045; 87046; 87070; 87077; 87081; 87086; 87149; 87186; 87205; 87324; 87430; 87449; 87633; 87899; 89051; 93005; 94760; 96361; 96365; 96367; C1751; J0131; J0670; J0696; J1200; J1644; J1650; J2001; J2405; J2543; J2704; J2765; J3010; J3370; J3490; J7050; Q0162